=== PATIENT | female | born 1960 | race Caucasian/White ===

== ENCOUNTER 2016-11-29 15:39 | Emergency (ER) | payer BC ==
[~2016-11-29 15:39] MED LIST: Cetirizine* 10 MG TAB PO SCH
[2016-11-29] MEDS ORDERED: NS 0.9% 1000 ML* 1,000 ML IV ONE (16:10)
[2016-11-29] MEDS ORDERED: guaiFENesin LIQ* 100 MG/5 ML UDC PO ONE (16:11)
[2016-11-29] MEDS ORDERED: Ketorolac INJ* 30 MG/ML 1 ML VIAL IV PUSH ONE (16:12)
[2016-11-29] MEDS ORDERED: Saline NASAL SPRAY 0.65%* BTL BOTH NARES ONE (16:21)
--- NOTE | 2016-11-29 16:35 | RAD ---
INDICATION: Cough and congestion COMPARISON: Chest x-ray June 18, 2016 TECHNIQUE: An AP portable view obtained at 1615 hours is submitted. FINDINGS: Bones/Soft Tissues: There are no acute bony findings. Cardiomediastinal: The cardiomediastinal silhouette is normal. Lungs: There are no infiltrates. Pleura: There are no pleural effusions. Other: None IMPRESSION: NO ACTIVE DISEASE.
[2016-11-29 16:49] LABS: Hematocrit 41 % (35-47); Mean Corpuscular HGB Conc 34 g/dl (31-36); Mean Corpuscular Hemoglobin 30 pg (27-31); Mean Corpuscular Volume 87 fL (80-97); Mean Platelet Volume 9 um3 (7.4-10.4); Red Blood Count 4.72 10^6/ul (4.0-5.4); Red Cell Distribution Width 13 % (10.5-15); White Blood Count 7.3 10^3/ul (3.5-10.8)
[2016-11-29] MEDS ORDERED: Cetirizine* 10 MG TAB PO SCH (17:00)
[2016-11-29] MEDS ORDERED: Montelukast Sodium TAB* 10 MG PO ONE (17:16)
[2016-11-29 17:19] LABS: Albumin 4.1 g/dL (3.2-5.2); BUN/Creatinine Ratio 9.3 (8-20); C Reactive Protein 28.02 mg/L (< 5.00); Calcium 9.4 mg/dL (8.6-10.3); EGFR African American 102.1 (>60); EGFR Non-African American 79.4 (>60); Globulin 3.2 g/dL (2-4); Potassium 4.1 mmol/L (3.5-5.0); Total Bilirubin 0.4 mg/dL (0.2-1.0); Total Protein 7.3 g/dL (6.4-8.9)
[2016-11-29 17:52] LABS: Urine Bacteria Absent (Absent); Urine Bilirubin Negative (Negative); Urine Glucose Negative (Negative); Urine Nitrite Negative (Negative)
[2016-11-29 18:36] VITALS: BP 118/78
--- NOTE | 2016-11-29 20:00 | ED ---
Respiratory - HPI Summary HPI Summary: Patient arrives to ED with CC of sinus pressure, sinus pain, cough, congestion, nasal congestion, PERLA and body aches x 5 days. Productive cough with white to yellow sputum. Patient is a smoker. She states she has chronic sinus infection and this feels similar. 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 Patient requesting antibiotic for her sinus pressure and states nothing at home helps. She has tried afrin nasal spray, mucinex and tylenol with no relief. She feels she is getting worse. - History of Current Complaint Chief Complaint: Alice Stated Complaint: CHEST PAIN/HEAD PAIN/DIARHHEA Time Seen by Provider: 11/29/16 15:45 Hx Obtained From: Patient Onset/Duration: Gradual Onset Timing: Constant Initial Severity: Moderate Current Severity: Moderate Pain Intensity: 3 Character: Wheezing, Cough (Productive), Dyspnea at Rest, Dyspnea on Exertion, Orthopnea Sputum Amount: Small Sputum Color: White Aggravating Factor(s): URI, Passive Smoke Exposure Alleviating Factor(s): Antibiotics Associated Signs and Symptoms: SOB, Chest Pain - with cough, URI, Sinus Infection, Chest Pain with Cough, Nasal Congestion, Sinus Discomfort Related History: Similar Episode/Dx as - previous bronchitis and sinus infections - Risk Factors Status Asthmaticus Risk Factors: Smoking Pulmonary Embolism Risk Factors: Smoking Cardiac Risk Factors: Smoking Pseudomonas Risk Factors: Chronic Lung Disease Tuberculosis Risk Factors: Smoking - Allergy/Home Medications Allergies/Adverse Reactions: Allergies Allergy/AdvReac Type Severity Reaction Status Date / Time Sulfamethoxazole Allergy Severe Rash Verified 11/29/16 15:42 w/Trimethoprim [From Bactrim] PMH/Surg Hx/FS Hx/Imm Hx Previously Healthy: Yes - COPD, smoker Endocrine/Hematology History: Denies: Hx Diabetes, Hx Thyroid Disease Cardiovascular History: Reports: Other Cardiovascular Problems/Disorders - Hx of mild PERLA Denies: Hx Congestive Heart Failure, Hx Hypertension Respiratory History: Denies: Hx Asthma, Hx Chronic Obstructive Pulmonary Disease (COPD) GI History: Denies: Hx Ulcer History: Denies: Hx Renal Disease - Surgical History Surgery Procedure, Year, and Place: C-SECTIONS X3, NECK SURGERY, SHOULDER SURGERY, CHOLECYSTECTOMY Infectious Disease History: No Infectious Disease History: Denies: Hx Hepatitis, Hx Human Immunodeficiency Virus (HIV), Traveled Outside the [place] in Last 30 Days - Family History Known Family History: Positive: Cardiac Disease, Other - Cancer - Social History Occupation: Employed Full-time Lives: With Family Alcohol Use: None Hx Substance Use: No Substance Use Type: Reports: None Hx Tobacco Use: Yes Smoking Status (MU): Light Every Day Tobacco Smoker Type: Cigarettes Amount Used/How Often: 1 ppd Review of Systems Positive: Fever, Chills, Fatigue Eyes: Negative Positive: Sore Throat, Nasal Discharge, Other - sinus pressure and pain Positive: Chest Pain Positive: Shortness Of Breath, Cough Positive: Nausea Positive: see HPI Positive: Myalgia Skin: Negative Positive: Headache, Weakness Psychological: Normal All Other Systems Reviewed And Are Negative: Yes Physical Exam Triage Information Reviewed: Yes Vital Signs On Initial Exam: Initial Vitals Temp Pulse Resp BP Pulse Ox 99.7 F 77 20 129/66 100 11/29/16 15:42 11/29/16 15:42 11/29/16 15:42 11/29/16 15:42 11/29/16 15:42 Vital Signs Reviewed: Yes Appearance: Positive: No Pain Distress, Ill-Appearing Skin: Positive: Warm, Skin Color Reflects Adequate Perfusion Head/Face: Positive: Normal Head/Face Inspection, Temporal Artery Tenderness Eyes: Positive: Normal, EOMI, NARINDER, Conjunctiva Clear ENT: Positive: Pharynx normal, Nasal congestion, Nasal drainage, TMs normal, Other - sinus pressure over maxillary sinus and frontal sinus on percussion Neck: Positive: Supple, Nontender, No Lymphadenopathy Respiratory/Lung Sounds: Positive: Wheezes Cardiovascular: Positive: Normal, RRR Musculoskeletal: Positive: Normal, Strength/ROM Intact Neurological: Positive: Normal, Sensory/Motor Intact, Alert, Oriented to Person Place, Time, Speech Normal Psychiatric: Positive: Normal AVPU Assessment: Alert - Magda Coma Scale Best Eye Response: 4 - Spontaneous Best Motor Response: 6 - Obeys Commands Best Verbal Response: 5 - Oriented Diagnostics - Vital Signs Vital Signs Temp Pulse Resp BP Pulse Ox 11/29/16 18:35 98.8 F 74 20 118/78 11/29/16 17:32 18 11/29/16 15:42 99.7 F 77 20 129/66 100 - Laboratory Lab Results: Lab Results 11/29/16 11/29/16 11/29/16 Range/Units 16:25 16:35 16:35 WBC 7.3 (3.5-10.8) 10^3/ul RBC 4.72 (4.0-5.4) 10^6/ul Hgb 14.0 (12.0-16.0) g/dl Hct 41 (35-47) % MCV 87 (80-97) fL MCH 30 (27-31) pg MCHC 34 (31-36) g/dl RDW 13 (10.5-15) % Plt Count 141 L (150-450) 10^3/ul MPV 9 (7.4-10.4) um3 Neut % (Auto) 65.3 (38-83) % Lymph % (Auto) 22.0 L (25-47) % [place] % (Auto) 9.1 H (1-9) % Eos % (Auto) 2.9 (0-6) % Baso % (Auto) 0.7 (0-2) % Absolute Neuts (auto) 4.8 (1.5-7.7) 10^3/ul Absolute Lymphs (auto) 1.6 (1.0-4.8) 10^3/ul Absolute Monos (auto) 0.7 (0-0.8) 10^3/ul Absolute Eos (auto) 0.2 (0-0.6) 10^3/ul Absolute Basos (auto) 0.1 (0-0.2) 10^3/ul Absolute Nucleated RBC 0 10^3/ul Nucleated RBC % 0 Sodium 137 (133-145) mmol/L Potassium 4.1 (3.5-5.0) mmol/L Chloride 106 (101-111) mmol/L Carbon Dioxide 25 (22-32) mmol/L Anion Gap 6 (2-11) mmol/L BUN 7 (6-24) mg/dL Creatinine 0.75 (0.51-0.95) mg/dL Est GFR ( Amer) 102.1 (>60) Est GFR (Non-Af Amer) 79.4 (>60) BUN/Creatinine Ratio 9.3 (8-20) Glucose 95 (70-100) mg/dL Calcium 9.4 (8.6-10.3) mg/dL Total Bilirubin 0.40 (0.2-1.0) mg/dL AST 22 (13-39) U/L ALT 27 (7-52) U/L Alkaline Phosphatase 131 H (34-104) U/L C-Reactive Protein 28.02 H (< 5.00) mg/L Total Protein 7.3 (6.4-8.9) g/dL Albumin 4.1 (3.2-5.2) g/dL Globulin 3.2 (2-4) g/dL Albumin/Globulin Ratio 1.3 (1-3) Urine Color Urine Appearance Urine pH (5-9) Ur Specific [place] (1.010-1.030) Urine Protein (Negative) Urine Ketones (Negative) Urine Blood (Negative) Urine Nitrate (Negative) Urine Bilirubin (Negative) Urine Urobilinogen (Negative) Ur Leukocyte Esterase (Negative) Urine WBC (Auto) (Absent) Urine RBC (Auto) (Absent) Ur Squamous Epith Cells (Absent) Urine Bacteria (Absent) Urine Glucose (Negative) Influenza A (Rapid) Negative (Negative) Influenza B (Rapid) Negative (Negative) 11/29/16 Range/Units 17:25 WBC (3.5-10.8) 10^3/ul RBC (4.0-5.4) 10^6/ul Hgb (12.0-16.0) g/dl Hct (35-47) % MCV (80-97) fL MCH (27-31) pg MCHC (31-36) g/dl RDW (10.5-15) % Plt Count (150-450) 10^3/ul MPV (7.4-10.4) um3 Neut % (Auto) (38-83) % Lymph % (Auto) (25-47) % [place] % (Auto) (1-9) % Eos % (Auto) (0-6) % Baso % (Auto) (0-2) % Absolute Neuts (auto) (1.5-7.7) 10^3/ul Absolute Lymphs (auto) (1.0-4.8) 10^3/ul Absolute Monos (auto) (0-0.8) 10^3/ul Absolute Eos (auto) (0-0.6) 10^3/ul Absolute Basos (auto) (0-0.2) 10^3/ul Absolute Nucleated RBC 10^3/ul Nucleated RBC % Sodium (133-145) mmol/L Potassium (3.5-5.0) mmol/L Chloride (101-111) mmol/L Carbon Dioxide (22-32) mmol/L Anion Gap (2-11) mmol/L BUN (6-24) mg/dL Creatinine (0.51-0.95) mg/dL Est GFR ( Amer) (>60) Est GFR (Non-Af Amer) (>60) BUN/Creatinine Ratio (8-20) Glucose (70-100) mg/dL Calcium (8.6-10.3) mg/dL Total Bilirubin (0.2-1.0) mg/dL AST (13-39) U/L ALT (7-52) U/L Alkaline Phosphatase (34-104) U/L C-Reactive Protein (< 5.00) mg/L Total Protein (6.4-8.9) g/dL Albumin (3.2-5.2) g/dL Globulin (2-4) g/dL Albumin/Globulin Ratio (1-3) Urine Color Yellow Urine Appearance Clear Urine pH 6.0 (5-9) Ur Specific [place] 1.014 (1.010-1.030) Urine Protein Negative (Negative) Urine Ketones Negative (Negative) Urine Blood 1+ H (Negative) Urine Nitrate Negative (Negative) Urine Bilirubin Negative (Negative) Urine Urobilinogen Negative (Negative) Ur Leukocyte Esterase Negative (Negative) Urine WBC (Auto) Absent (Absent) Urine RBC (Auto) 1+(3-5/hpf) H (Absent) Ur Squamous Epith Cells Present H (Absent) Urine Bacteria Absent (Absent) Urine Glucose Negative (Negative) Influenza A (Rapid) (Negative) Influenza B (Rapid) (Negative) Result Diagrams: 11/29/16 16:35 11/29/16 16:35 Lab Statement: Any lab studies that have been ordered have been reviewed, and results considered in the medical decision making process. Disposition - Course Course Of Treatment: Patient given 1L fluids,labs drawn, flu swab given. Mucinex, nasal spray, zyrtec, zofran given. Patient feeling worse after nasal spray and states she is more congested. Flu negative. Sputum culture sent. Chest xray for acute pathology. COPD patient. DC home with Augmentin 875mg twice daily Will await sputum culture if needed to change antibiotics. - Differential Dx - Cardiopulmonary Differential Diagnoses - Cardiopulmonary: Bronchitis, Sinusitis, Other - PNA - Diagnoses Provider Diagnoses: Sinusitis Discharge - Discharge Plan Condition: Stable Disposition: HOME Prescriptions: Amoxicillin/Clavulanate TAB* [Augmentin TAB 875*] 875 mg PO BID #14 tab MDD 2 Patient Education Materials: Sinusitis (ED) Forms: *Work Release Referrals: Ronald Beckett [Primary Care Provider] - Additional Instructions: Take a probiotic on opposite schedule of your antibiotic. An antibiotic may give you diarrhea, upset stomach and secondary infections. Follow up with your PCP if symptoms worsen. Hot tea, lemon and honey for any throat discomfort. Tylenol as needed for fevers and body aches. Nasal spray twice daily. Mucinex over the counter as needed for congestion.
== END 2016-11-29 18:35 | disposition home or self-care (01) ==
LOC: ED 15:39
DX: J32.9 Chronic sinusitis, unspecified (principal); J06.9 Acute upper respiratory infection, unspecified; R07.9 Chest pain, unspecified; R09.81 Nasal congestion; R06.02 Shortness of breath; R53.83 Other fatigue; F17.210 Nicotine dependence, cigarettes, uncomplicated; R11.0 Nausea
CPT/HCPCS: 36415; 71010; 80053; 81003; 81015; 85025; 86140; 87070; 87205; 87502; 96374; 99282; A9270-GY; J1885

== ENCOUNTER 2017-01-04 22:27 | Emergency (ER) | payer SELFPAY ==
--- NOTE | 2017-01-04 23:00 | RAD ---
INDICATION: Right ankle injury. TECHNIQUE: 3 views of the right ankle were obtained. FINDINGS: There is soft tissue swelling present. The bones are in normal alignment. No fracture is seen. Joint spaces appear maintained. IMPRESSION: NO EVIDENCE FOR FRACTURE.
[2017-01-04] MEDS ORDERED: Ibuprofen TAB* 600 MG PO ONE (23:46)
--- NOTE | 2017-01-04 23:46 | ED ---
Lower Extremity - HPI Summary HPI Summary: 56F presents with injury to right foot today. She dropped a mop on the medial aspect of her right ankle. She denies any numbness or tingling. There is obvious swelling to the medial aspect of her ankle. She denies any previous injury to the ankle - History of Current Complaint Chief Complaint: EDExtremityLower Stated Complaint: RIGHT INSIDE ANKLE PAIN Time Seen by Provider: 01/04/17 23:39 Pain Intensity: 8 - Allergies/Home Medications Allergies/Adverse Reactions: Allergies Allergy/AdvReac Type Severity Reaction Status Date / Time Sulfamethoxazole Allergy Severe Rash Verified 01/04/17 22:40 w/Trimethoprim [From Bactrim] PMH/Surg Hx/FS Hx/Imm Hx Endocrine/Hematology History: Denies: Hx Diabetes, Hx Thyroid Disease Cardiovascular History: Reports: Other Cardiovascular Problems/Disorders - Hx of mild PERLA Denies: Hx Congestive Heart Failure, Hx Hypertension Respiratory History: Denies: Hx Asthma, Hx Chronic Obstructive Pulmonary Disease (COPD) GI History: Denies: Hx Ulcer History: Denies: Hx Renal Disease - Surgical History Surgery Procedure, Year, and Place: C-SECTIONS X3, NECK SURGERY, SHOULDER SURGERY, CHOLECYSTECTOMY Infectious Disease History: No Infectious Disease History: Denies: Hx Hepatitis, Hx Human Immunodeficiency Virus (HIV), Traveled Outside the [place] in Last 30 Days - Family History Known Family History: Positive: Cardiac Disease, Other - Cancer - Social History Alcohol Use: None Hx Substance Use: No Substance Use Type: Reports: None Hx Tobacco Use: Yes Smoking Status (MU): Light Every Day Tobacco Smoker Type: Cigarettes Amount Used/How Often: 1 ppd Review of Systems Negative: Fever Negative: Chest Pain Negative: Shortness Of Breath Positive: Myalgia - right ankle pain All Other Systems Reviewed And Are Negative: Yes Physical Exam Triage Information Reviewed: Yes Vital Signs On Initial Exam: Initial Vitals Temp Pulse Resp BP Pulse Ox 97.8 F 78 15 116/61 99 01/04/17 22:35 01/04/17 22:35 01/04/17 22:35 01/04/17 22:35 01/04/17 22:35 Vital Signs Reviewed: Yes Appearance: Positive: Well-Appearing Skin: Positive: Warm, Dry Head/Face: Positive: Normal Head/Face Inspection Eyes: Positive: Normal, Conjunctiva Clear Respiratory/Lung Sounds: Positive: Clear to Auscultation, Breath Sounds Present Cardiovascular: Positive: Normal, RRR Musculoskeletal: Positive: Limited @ - right ankle due to pain, Other - good pulses, capillary refill < 2 secs, ecchymosis noted to right medial malleoulus that is tender to touch, sensation grossly intact Diagnostics - Vital Signs Vital Signs Temp Pulse Resp BP Pulse Ox 01/04/17 22:35 97.8 F 78 15 116/61 99 - Laboratory Lab Statement: Any lab studies that have been ordered have been reviewed, and results considered in the medical decision making process. - Radiology ankle Xray Interpretation: No Acute Changes - IMPRESSION: NO EVIDENCE FOR FRACTURE. Radiology Interpretation Completed By: Radiologist Lower Extremity Course/Dx - Course Course Of Treatment: 56M presents with right ankle pain s/p dropping mop on ankle. on exam has ecchymosis noted to right medical malleolous, neurovascular intact. xray normal. told will treat as contusion, patient requested post op shoe with gave. told follow [facility]ICE. patient understands and agrees with plan - Diagnoses Differential Diagnosis/HQI/PQRI: Positive: Contusion, Fracture (Closed), Sprain , Strain Provider Diagnoses: Right ankle injury Discharge - Discharge Plan Condition: Good Disposition: HOME Patient Education Materials: Foot Contusion (ED) Forms: *Work Release Referrals: Ronald Beckett [Primary Care Provider] - Additional Instructions: Take Tylenol or ibuprofen every 6 hours as needed for pain Apply ice, rest, elevate Follow up with primary care physician within 5 days if no improvement Return to ED if develop or any new or worsening symptoms
[2017-01-05 00:44] VITALS: BP 116/66
== END 2017-01-05 00:42 | disposition home or self-care (01) ==
LOC: ED 22:27
DX: S99.911A Unspecified injury of right ankle, initial encounter (principal); W20.8XXA Other cause of strike by thrown, projected or falling object, initial encounter; Y93.9 Activity, unspecified; Y92.89 Other specified places as the place of occurrence of the external cause; Y99.8 Other external cause status; F17.210 Nicotine dependence, cigarettes, uncomplicated
CPT/HCPCS: 99282; A9270-GY

== ENCOUNTER 2017-06-03 17:48 | Observation (INO) | payer BC ==
[2017-06-03] MEDS ORDERED: Famotidine IV* 10 MG/ML 2 ML (20 mg) IV SLOW PU ONE (18:04)
[2017-06-03] MEDS ORDERED: Al Hydrox/Mg Hydrox/Simet LIQ* 30 ML UDC PO ONE (18:04)
--- NOTE | 2017-06-03 18:49 | RAD ---
Indication: Epigastric pain. Single frontal view of the chest performed at 1830 hours was reviewed. Comparison is made with previous exam dated November 29, 2016. No mediastinal shift is noted. Heart is of normal size and configuration. Lung velarde appear clear. IMPRESSION: NO ACTIVE CARDIOPULMONARY DISEASE IS NOTED.
[2017-06-03] MEDS ORDERED: Ondansetron INJ* 2 MG/ML VIAL IV ONE ×2 (18:52→19:53)
[2017-06-03] MEDS ORDERED: Ondansetron INJ* 2 MG/ML VIAL ONE (18:54)
[2017-06-03] MEDS: NS 0.9% 1000 ML* 1,000 ML IV SCH (18:55)
[2017-06-03 19:06] LABS: Hematocrit 41 % (35-47); Hemoglobin 13.8 g/dl (12.0-16.0); Mean Corpuscular HGB Conc 34 g/dl (31-36); Mean Corpuscular Hemoglobin 30 pg (27-31); Mean Corpuscular Volume 88 fL (80-97); Mean Platelet Volume 9 um3 (7.4-10.4); Red Blood Count 4.62 10^6/ul (4.0-5.4); Red Cell Distribution Width 14 % (10.5-15); White Blood Count 8.5 10^3/ul (3.5-10.8)
[2017-06-03 19:30] LABS: Albumin 4.3 g/dL (3.2-5.2); BUN/Creatinine Ratio 15.5 (8-20); C Reactive Protein 18.43 mg/L (< 5.00); Calcium 9.7 mg/dL (8.6-10.3); EGFR African American 108.7 (>60); EGFR Non-African American 84.6 (>60); Magnesium 2.1 mg/dL (1.9-2.7); Potassium 3.9 mmol/L (3.5-5.0); Total Bilirubin 0.4 mg/dL (0.2-1.0); Total Protein 7.3 g/dL (6.4-8.9)
[2017-06-03 19:43] LABS: TSH (Thyroid Stimulating Horm) 4.34 mcIU/mL (0.34-5.60)
[2017-06-03] MEDS ORDERED: Morphine INJ* 4 MG/ML 1 ML SYRINGE IV ONE (19:53)
[2017-06-03] MEDS ORDERED: Aspirin TAB* 325 MG PO ONE (19:54)
[2017-06-03] MEDS ORDERED: Iohexol 300* (CONTRAST) 10 ML SDV IV ONE (20:13)
[2017-06-03] MEDS ORDERED: Albuterol/Ipratropium NEB.SOL* Albuterol 2.5 MG/Ipratropium 0.5 MG 3 ML INH ONE (20:23)
[2017-06-03] MEDS ORDERED: Iohexol 350* (CONTRAST) 500 ML MDV IV ONE (20:30)
[2017-06-03] MEDS ORDERED: Morphine INJ* 2 MG/ML 1 ML SYRINGE ONE (21:24)
[2017-06-03] MEDS ORDERED: Morphine INJ* 2 MG/ML 1 ML SYRINGE IV PRN (22:56)
--- NOTE | 2017-06-03 23:34 | ED ---
Belem Gates Rebecca, scribed for DaronMagno on 06/03/17 at 1957 . HPI Chest Pain - HPI Summary HPI Summary: Pt is a 56 y/o F BIBA who presents to ED c/o CP. Pain began last night while at work at approximately 0200, then resolved and returned at approximately 1130, waking her up from sleep. Pain is in the lower sternal region with radiation to the epigastric region and is currently severe, ranked 8/10. Additionally c/o N/V , dizziness and SOB. Denies edema. No PMHx HTN, DM. FHx CAD. SHx current smoker. - History of Current Complaint Chief Complaint: EDChestPainROMI Time Seen by Provider: 06/03/17 19:28 Hx Obtained From: Patient Onset/Duration: Started Hours Ago, Still Present Time of Onset: 02:00 Timing: Intermittent Current Severity: Severe Pain Intensity: 8 Pain Scale Used: 0-10 Numeric Chest Pain Location: Lower Sternal Chest Pain Radiates: Yes Chest Pain Radiates To:: Epigastric Associated Signs and Symptoms: Positive: Dizziness, Shortness of Breath, Nausea , Vomiting - Allergy/Home Medications Allergies/Adverse Reactions: Allergies Allergy/AdvReac Type Severity Reaction Status Date / Time Sulfamethoxazole Allergy Severe Rash Verified 06/03/17 20:07 w/Trimethoprim [From Bactrim] Home Medications: Home Medications Unobtainable [Unobtainable] 06/03/17 [History Confirmed 06/03/17] PMH/Surg Hx/FS Hx/Imm Hx Endocrine/Hematology History: Denies: Hx Diabetes, Hx Thyroid Disease Cardiovascular History: Reports: Other Cardiovascular Problems/Disorders - Hx of mild PERLA Denies: Hx Congestive Heart Failure, Hx Hypertension Respiratory History: Denies: Hx Asthma, Hx Chronic Obstructive Pulmonary Disease (COPD) GI History: Denies: Hx Ulcer History: Denies: Hx Renal Disease - Surgical History Surgery Procedure, Year, and Place: C-SECTIONS X3, NECK SURGERY, SHOULDER SURGERY, CHOLECYSTECTOMY Infectious Disease History: Denies: Hx Hepatitis, Hx Human Immunodeficiency Virus (HIV), Traveled Outside the [place] in Last 30 Days - Family History Known Family History: Positive: Cardiac Disease, Other - Cancer - Social History Alcohol Use: None Hx Substance Use: No Substance Use Type: Reports: None Hx Tobacco Use: Yes Smoking Status (MU): Light Every Day Tobacco Smoker Type: Cigarettes Amount Used/How Often: 1 ppd Review of Systems Positive: Chest Pain Positive: Shortness Of Breath Positive: Vomiting, Nausea Neurological: Other - Dizziness All Other Systems Reviewed And Are Negative: Yes Physical Exam - Summary Physical Exam Summary: Appearance: Well appearing, no pain distress Skin: warm, dry, reflects adequate perfusion Head/face: normal Eyes: EOMI, NARINDER ENT: normal Neck: supple, nontender Respiratory: bilateral wheeze, breath sounds present Cardiovascular: RRR, pulses symmetrical Abdomen: epigastric tenderness, LUQ tenderness, soft Bowel: present Musculoskeletal: normal, strength/ROM intact Neuro: normal, sensory motor intact, A&Ox3 Triage Information Reviewed: Yes Vital Signs On Initial Exam: Initial Vitals Temp Pulse Resp BP Pulse Ox 98.6 F 66 12 132/74 97 06/03/17 17:59 06/03/17 17:59 06/03/17 17:59 06/03/17 17:59 06/03/17 17:59 Vital Signs Reviewed: Yes - Magda Coma Scale Coma Scale Total: 15 Diagnostics - Vital Signs Vital Signs Temp Pulse Resp BP Pulse Ox 06/03/17 17:59 98.6 F 66 12 132/74 97 - Laboratory Lab Results: Lab Results 06/03/17 06/03/17 06/03/17 Range/Units 18:45 18:45 18:45 WBC (3.5-10.8) 10^3/ul RBC (4.0-5.4) 10^6/ul Hgb (12.0-16.0) g/dl Hct (35-47) % MCV (80-97) fL MCH (27-31) pg MCHC (31-36) g/dl RDW (10.5-15) % Plt Count (150-450) 10^3/ul MPV (7.4-10.4) um3 Neut % (Auto) (38-83) % Lymph % (Auto) (25-47) % Rogers % (Auto) (1-9) % Eos % (Auto) (0-6) % Baso % (Auto) (0-2) % Absolute Neuts (auto) (1.5-7.7) 10^3/ul Absolute Lymphs (auto) (1.0-4.8) 10^3/ul Absolute Monos (auto) (0-0.8) 10^3/ul Absolute Eos (auto) (0-0.6) 10^3/ul Absolute Basos (auto) (0-0.2) 10^3/ul Absolute Nucleated RBC 10^3/ul Nucleated RBC % INR (Anticoag Therapy) 0.87 L (0.89-1.11) APTT 32.0 (26.0-36.3) seconds D-Dimer, Quantitative 425 H (Less Than 230) ng/mL Sodium 138 (133-145) mmol/L Potassium 3.9 (3.5-5.0) mmol/L Chloride 106 (101-111) mmol/L Carbon Dioxide 23 (22-32) mmol/L Anion Gap 9 (2-11) mmol/L BUN 11 (6-24) mg/dL Creatinine 0.71 (0.51-0.95) mg/dL Est GFR ( Amer) 108.7 (>60) Est GFR (Non-Af Amer) 84.6 (>60) BUN/Creatinine Ratio 15.5 (8-20) Glucose 94 (70-100) mg/dL Lactic Acid (0.5-2.0) mmol/L Calcium 9.7 (8.6-10.3) mg/dL Magnesium 2.1 (1.9-2.7) mg/dL Total Bilirubin 0.40 (0.2-1.0) mg/dL AST 19 (13-39) U/L ALT 22 (7-52) U/L Alkaline Phosphatase 111 H (34-104) U/L Total Creatine Kinase 59 (10-223) U/L CK-MB (CK-2) 1.1 (0.6-6.3) ng/mL Troponin I 0.00 (<0.04) ng/mL C-Reactive Protein 18.43 H (< 5.00) mg/L B-Natriuretic Peptide 33 ( - 100) pg/mL Total Protein 7.3 (6.4-8.9) g/dL Albumin 4.3 (3.2-5.2) g/dL Globulin 3.0 (2-4) g/dL Albumin/Globulin Ratio 1.4 (1-3) Lipase 35 (11.0-82.0) U/L TSH Pending 06/03/17 06/03/17 Range/Units 18:45 18:45 WBC 8.5 (3.5-10.8) 10^3/ul RBC 4.62 (4.0-5.4) 10^6/ul Hgb 13.8 (12.0-16.0) g/dl Hct 41 (35-47) % MCV 88 (80-97) fL MCH 30 (27-31) pg MCHC 34 (31-36) g/dl RDW 14 (10.5-15) % Plt Count 174 (150-450) 10^3/ul MPV 9 (7.4-10.4) um3 Neut % (Auto) 65.7 (38-83) % Lymph % (Auto) 26.0 (25-47) % Rogers % (Auto) 6.2 (1-9) % Eos % (Auto) 1.4 (0-6) % Baso % (Auto) 0.7 (0-2) % Absolute Neuts (auto) 5.6 (1.5-7.7) 10^3/ul Absolute Lymphs (auto) 2.2 (1.0-4.8) 10^3/ul Absolute Monos (auto) 0.5 (0-0.8) 10^3/ul Absolute Eos (auto) 0.1 (0-0.6) 10^3/ul Absolute Basos (auto) 0.1 (0-0.2) 10^3/ul Absolute Nucleated RBC 0 10^3/ul Nucleated RBC % 0 INR (Anticoag Therapy) (0.89-1.11) APTT (26.0-36.3) seconds D-Dimer, Quantitative (Less Than 230) ng/mL Sodium (133-145) mmol/L Potassium (3.5-5.0) mmol/L Chloride (101-111) mmol/L Carbon Dioxide (22-32) mmol/L Anion Gap (2-11) mmol/L BUN (6-24) mg/dL Creatinine (0.51-0.95) mg/dL Est GFR ( Amer) (>60) Est GFR (Non-Af Amer) (>60) BUN/Creatinine Ratio (8-20) Glucose (70-100) mg/dL Lactic Acid 0.8 (0.5-2.0) mmol/L Calcium (8.6-10.3) mg/dL Magnesium (1.9-2.7) mg/dL Total Bilirubin (0.2-1.0) mg/dL AST (13-39) U/L ALT (7-52) U/L Alkaline Phosphatase (34-104) U/L Total Creatine Kinase (10-223) U/L CK-MB (CK-2) (0.6-6.3) ng/mL Troponin I (<0.04) ng/mL C-Reactive Protein (< 5.00) mg/L B-Natriuretic Peptide ( - 100) pg/mL Total Protein (6.4-8.9) g/dL Albumin (3.2-5.2) g/dL Globulin (2-4) g/dL Albumin/Globulin Ratio (1-3) Lipase (11.0-82.0) U/L TSH Result Diagrams: 06/03/17 18:45 06/03/17 18:45 Lab Statement: Any lab studies that have been ordered have been reviewed, and results considered in the medical decision making process. - Radiology CXR Xray Interpretation: No Acute Changes - NO ACTIVE CARDIOPULMONARY DISEASE IS NOTED. ED physician reviewed this radiology report and agrees. Radiology Interpretation Completed By: Radiologist - CT CTA Chest/CT Abd/Pel CT Interpretation Completed By: Radiologist - Chest: Thoracic aorta is mildly atherosclerotic and mildly ectatic in a diffuse fashion. No thoracic or abdominal aortic dissection. No evidence of pulmonary embolism. The heart size is borderline. There is trace pleural effusions. No pneumothorax. Abdomen/Pelvis : There is no free air in the abdomen. There is mild fatty change in the liver. There is prior cholecystectomy. There is no hydronephrosis. The abdominal aorta is mildly calcified. Ther eis no abdominal aortic aneurysm. The appendix is not identified.There is no pericecal or right lower quadrant inflammatory process. Urinary bladder unremarkable. The ED physician reviewed this radiology report and agrees. - EKG 1807 Cardiac Rate: NL - 60 bpm EKG Rhythm: Sinus Rhythm EKG Interpretation: RBBB Chest Pain Course/Dx - Course Assessment/Plan: Pt is a 56 y/o F BIBA who presents to ED c/o CP. Pain began last night while at work at approximately 0200, then resolved and returned at approximately 1130, waking her up from sleep. Pain is in the lower sternal region with radiation to the epigastric region and is currently severe, ranked 8 /10. Additionally c/o N/V, dizziness and SOB. Denies edema. No PMHx HTN, DM. FHx CAD. SHx current smoker. CXR reveals no acute findings. EKG is sinus rhythm with RBBB. CTA Chest/CT abd/Pel reveals "Chest: Thoracic aorta is mildly atherosclerotic and mildly ectatic in a diffuse fashion. No thoracic or abdominal aortic dissection. No evidence of pulmonary embolism. The heart size is borderline. There is trace pleural effusions. No pneumothorax. Abdomen/Pelvis : There is no free air in the abdomen. There is mild fatty change in the liver. There is prior cholecystectomy. There is no hydronephrosis. The abdominal aorta is mildly calcified. Ther eis no abdominal aortic aneurysm. The appendix is not identified.There is no pericecal or right lower quadrant inflammatory process. Urinary bladder unremarkable." Blood work done. D-Dimer of 425, troponin of 0.00. In the ED course, pt received Maalox, pepcid, morphine, zofran, ASA, duoneb and fluids. Discussed care of pt with Dr. Arceo who accepts pt for admission. Pt will be admitted with Dx of CP r/o [place] and abdominal pain. She understands and agrees. Elevated BP noted and advised to f/u with PCP. - Diagnoses Provider Diagnoses: Chest pain, rule out acute myocardial infarction, Abdominal pain - Provider Notifications Discussed Care Of Patient With: Doug Arceo Time Discussed With Above Provider: 22:12 Instructed by Provider To: Other - Accepts pt for admission Discharge - Discharge Plan Condition: Stable Disposition: ADMITTED TO [facility] documentation as recorded by the Belem pringle Rebecca accurately reflects the service I personally performed and the decisions made by , Magno Neri.
[2017-06-04] MEDS: NS 0.9% 1000 ML* 1,000 ML IV SCH (00:06)
--- NOTE | 2017-06-04 01:34 | HP ---
CC: JOSE CRUZ Brown * HISTORY AND PHYSICAL: DATE OF ADMISSION: 06/03/17 PRIMARY CARE PHYSICIAN: JOSE CRUZ Brown CHIEF COMPLAINT: Chest pain. HISTORY OF PRESENT ILLNESS: The patient is a 56-year-old woman, who said last night at work she started feeling dizzy. She felt a little bit of chest pain on her left side. It seems to let up so she did not think much of it. She went home and went to sleep and then it awoken her from sleep. At that point, it was about 9/10 in severity and it radiated to her left arm. She had some associated shortness of breath and she felt a little clammy, but she had no nausea or vomiting. She took nothing for it. She states that she tried to relax in her chair, but it never went away so she came to the ED for evaluation. In the ED, she received morphine, which did help relieve the pain. PAST MEDICAL HISTORY: Significant for biliary colic, status post cholecystectomy in January 2012, appendectomy, C-sections x3, left shoulder surgery, neck disk surgery and anxiety. MEDICATIONS: Include sertraline 50 mg daily. ALLERGIES: She has an allergy/adverse reaction to BACTRIM. FAMILY HISTORY: Father at 70 with CHF, mother at 55 of pancreatic cancer. SOCIAL HISTORY: Smoked half to a pack a day or more a day now and usually smokes one and a half packs a day and she has been smoking for 30 years. No alcohol or recreational drug use. She works at [employer] She is a . Her daughter, Gabriel Giron, is her healthcare proxy. She has 3 children. REVIEW OF SYSTEMS: A 14-point review of systems was completed with the patient. All pertinent positives and negatives are in the history of present illness, otherwise it is negative. PHYSICAL EXAMINATION GENERAL: She is a very pleasant woman, lying in bed, in no acute distress. VITAL SIGNS: Temperature 98.6 degrees, heart rate is 66 beats a minute, respiratory rate 12 breaths a minute, pulse ox 97% on room air, blood pressure 132/74. HEENT: Normocephalic, atraumatic. Pupils equal, round, and reactive to light. Moist mucous membranes. NECK: Supple. No JVD, bruits, palpable thyroid or lymphadenopathy. CHEST: Clear to auscultation and percussion bilaterally. CARDIOVASCULAR: S1, S2 appreciated. Regular rate and rhythm. No murmurs, gallops or rubs. ABDOMEN: Positive bowel sounds in all 4 quadrants. Soft, nontender, nondistended. No hepatosplenomegaly. EXTREMITIES: No cyanosis, clubbing or edema. +2 peripheral pulses bilaterally. NEURO: Alert and oriented x3. Moves all extremities. SKIN: No rashes or other abnormalities. LABORATORY DATA/DIAGNOSTIC DATA: White count 8.5, hemoglobin 13.8, hematocrit 41, platelets 174. Sodium 138, potassium 3.9, chloride 106, CO2 23, BUN 11, creatinine 0.71, glucose 94, troponin 0.00, INR 0.87, D-dimer is 425. Chest, abdomen, and pelvis CTA reading is pending. Chest x-ray shows no active cardiopulmonary disease. EKG shows normal sinus rhythm, 60 beats per minute, normal axis, no acute ST-T wave changes, incomplete right bundle-branch block. ASSESSMENT AND PLAN: 1. Chest pain, the patient with risk factor of smoking. We will admit the patient, rule out myocardial infarction with serial troponins, check lipid profile in a.m., nuclear stress test in a.m., await CTA scan. Obviously if positive, we will reassess if she has a pulmonary embolism. 2. Tobacco abuse, recommended cessation. The patient declines need for nicotine replacement at this time. 3. FEN, n.p.o. after midnight. 4. DVT prophylaxis, heparin subcu. 5. The patient is full code. TIME SPENT: Over 75 minutes were spent on this H and P, more than 40 minutes of which was spent in direct [id number] contact with the patient in evaluation , physical exam, counseling and coordination of care. [id number]/[facility] #: [id number] LIUDMILA
[2017-06-04 03:43] LABS: HDL Cholesterol 36.9 mg/dL
[2017-06-04 04:27] LABS: Urine Bacteria Absent (Absent); Urine Bilirubin Negative (Negative); Urine Glucose Negative (Negative); Urine Nitrite Negative (Negative)
[2017-06-04] MEDS ORDERED: Acetaminophen TAB* 325 MG PO PRN (05:31)
[2017-06-04] MEDS ORDERED: Heparin VIAL(*) 5000 UNITS/ML VIAL (FIVE THOUSAND) SUBCUT SCH (06:00)
--- NOTE | 2017-06-04 07:38 | RAD ---
INDICATION: Abdominal pain. COMPARISON: Comparison is made with a prior CT of the abdomen and pelvis from June 30, 2012, prior CT angiogram of the chest from July 03, 2013 and chest x-ray exam from June 03, 2017. TECHNIQUE: A CT angiogram of the chest and a CT of the abdomen and pelvis was performed with intravenous contrast following intravenous injection of 72 ml of Omnipaque 350 nonionic contrast. Contiguous axial sections were obtained from the lung apices through the symphysis pubis. Images were reconstructed in the coronal and sagittal planes. FINDINGS: CT ANGIOGRAM OF THE CHEST: There is relatively homogeneous opacification of the pulmonary arteries. No intraluminal filling defect or pulmonary embolism is seen. The heart is within normal limits in size. No pericardial effusion is present. The thoracic aorta is normal in caliber and demonstrates homogeneous contrast opacification without evidence for dissection. No significant enlarged mediastinal or hilar lymph nodes are seen. There is mild dependent bilateral lower lobe subsegmental atelectasis. The lungs are otherwise clear. No pleural effusion or pneumothorax is seen. CT OF THE ABDOMEN AND PELVIS: The liver and spleen are normal in size without significant focal abnormality. The liver is decreased in attenuation consistent with fatty infiltration. The patient is status post cholecystectomy. The pancreas appears to be within normal limits. The kidneys and adrenal glands are normal in size. No hydronephrosis is seen. No significant focal renal abnormality is seen. The abdominal aorta is normal in caliber. There is mild to moderate calcific and soft plaque present. No significant enlarged retroperitoneal lymph nodes are seen. The stomach, small and large bowel appear nondistended. The appendix is not visualized. There is mild descending and sigmoid diverticulosis without evidence for diverticulitis. The uterus is anteverted and normal in size. No free intraperitoneal air or fluid is seen. No significant focal osseous abnormality is seen. IMPRESSION: 1. NO EVIDENCE FOR PULMONARY EMBOLISM OR AORTIC DISSECTION. 2. NO EVIDENCE FOR ACUTE FINDING IN THE ABDOMEN OR CAUSE FOR THE PATIENT'S ABDOMINAL PAIN. 3. HEPATIC STEATOSIS. 4. STATUS POST CHOLECYSTECTOMY.
[2017-06-04 08:55] VITALS: BP 99/40
[2017-06-04] MEDS ORDERED: Sertraline* 50 MG TAB PO SCH (09:00)
--- NOTE | 2017-06-04 11:26 | RAD ---
HISTORY: Chest pain COMPARISONS: None TECHNIQUE: A 1 day stress/rest myocardial perfusion study was performed, with pharmacologic stress. The stress portion was monitored by Dr. Todd. Gated SPECT imaging was performed, with CT-based attenuation correction DOSE: Stress: Technetium 99m tetrofosmin, 25.8 millicuries, injected at 9:20 AM on June 04, 2017 Rest: Technetium 99m tetrofosmin, 10.83 millicuries, injected at 6:30 AM on June 04, 2017 Pharmacologic agent: Lexiscan FINDINGS: CARDIAC MONITORING: No EKG changes of ischemia with stress EF: 74 % TID: 1.31 MOTION: Normal motion, with normal wall thickening. PERFUSION: There is an anterior wall defect that resolves with attenuation correction, and is likely artifactual. There are no definite fixed or reversible perfusion defects. OTHER: None IMPRESSION: NO DEFINITE FIXED OR REVERSIBLE PERFUSION DEFECTS. THERE IS AN ELEVATED TID RATIO WHICH MAY BE ASSOCIATED WITH THREE-VESSEL DISEASE ASSESSMENT: INTERMEDIATE RISK. Based on imaging criteria from ACC/AHA 2002. Guideline Update for the Management of Patient's with Chronic Stable Angina, table 23. Noninvasive Risk Stratification.
[2017-06-04] MEDS ORDERED: Regadenoson* 0.4 MG/5 ML SYRINGE ONE (11:54)
--- NOTE | 2017-06-04 12:09 | DCNOTE ---
Patient seen this morning, states pain is almost gone. Now feels like gas pains/ indigestion, reports belching alleviates pain. On exam, RRR, s1 and s2 present, no m/g/r, abd soft, NTND, BS+, no LE edema Nuclear stress test had some concern for increased TID ratio, discussed with Dr. Del Angel who felt there were no abnormalities Discharge home on PPI, f/u with PCP.
--- NOTE | 2017-06-05 08:40 | DS ---
CC: JOSE CRUZ Brown * DISCHARGE SUMMARY: DATE OF ADMISSION: 06/03/17 DATE OF DISCHARGE: 06/04/17 PCP: JOSE CRUZ Brown PRINCIPAL DISCHARGE DIAGNOSIS: Chest pain, likely GI related. SECONDARY DIAGNOSES: 1. Depression/anxiety. DISCHARGE MEDICATION REGIMEN: 1. Sertraline 50 mg by mouth daily. 2. Omeprazole 20 mg by mouth daily. STUDIES DONE DURING HOSPITALIZATION: 1. Chest x-ray. Impression: No active cardiopulmonary disease is noted. 2. CTA of chest, abdomen, and pelvis. Impression: No evidence for pulmonary embolism or aortic dissection. No evidence for acute findings in the abdomen or cause for the patient's abdominal pain. Hepatic steatosis, status post cholecystectomy. 3. Nuclear cardiac stress test. Impression: No definite fixed or reversible perfusion defects. There is an elevated T.I.D. ratio, which may be associated with three-vessel disease. Assessment: Intermediate risk. HISTORY OF PRESENT ILLNESS AND HOSPITAL SUMMARY: Please see the full history and physical by Dr. Doug Arceo for details. Briefly, Ms. Brewer is a 56-year- old female who presented to the hospital with chest pain that radiated down the arm. This pain resolved in the emergency department, but did not recur throughout the remainder of the hospitalization. She was monitored on telemetry and troponins were trended, which were normal. The patient underwent a stress test; that was negative. On further discussion with the patient, she states that the pain feels like a gas pain, possibly some indigestion. She states she has been belching since she came to the hospital with improvement in her pain. She states she used to be on a PPI, which she stopped a few months ago, but she would like to resume this if possible. Blood pressures were a bit soft in the hospital; however, she was asymptomatic. The patient will be discharged home with a prescription for a PPI, and to follow up with her PCP as an outpatient. TIME SPENT: Total time spent on this discharge - 35 minutes. This is a summary of the hospitalization; please see the full medical record for further details. [id number]/[facility] #: [id number] MTDD
== END 2017-06-04 12:51 | disposition home or self-care (01) ==
LOC: ED 17:48 → MEDTELE 22:56
PROVIDERS: ADMIT Internal Medicine; ATTEND Hospitalist
DX: R07.89 Other chest pain (principal); F41.8 Other specified anxiety disorders; K76.0 Fatty (change of) liver, not elsewhere classified; R10.9 Unspecified abdominal pain; R10.13 Epigastric pain; R11.2 Nausea with vomiting, unspecified; R42 Dizziness and giddiness; R06.02 Shortness of breath; F17.210 Nicotine dependence, cigarettes, uncomplicated
CPT/HCPCS: 36415; 71010; 71275; 74177; 78452; 80053; 80061; 81003; 81015; 82550; 82553; 83605; 83690; 83735; 83880; 84443; 84484; 85025; 85379; 85610; 85730; 86140; 93005; 93017; 94640; 96374; 96375; 99285; A9270-GY; A9502; G0378; J1644; J2270; J2405; J2785; Q9967

== ENCOUNTER 2017-07-15 18:03 | Emergency (ER) | payer BC ==
[2017-07-15 18:18] VITALS: BP 123/58
[2017-07-15] MEDS ORDERED: Albuterol 2.5 MG/3 ML NEB.SOL* (0.083%) INH ONE (18:32)
[2017-07-15] MEDS ORDERED: Ipratropium 0.5MG/2.5ML NEB* 0.5 MG/2.5 ML NEB.SOLN INH ONE (18:32)
--- NOTE | 2017-07-15 18:42 | UC ---
Respiratory Complaint HPI - HPI Summary HPI Summary: 56 yo female with one month hx of cough has had sinus pressure and pain Wheezing no f/c no cp/sob no n/v/d - History of Current Complaint Chief Complaint: UCGeneralIllness Stated Complaint: SINUS CONGESTION, COUGH, AND CHILLS Time Seen by Provider: 07/15/17 18:23 Hx Obtained From: Patient Onset/Duration: Gradual Onset, Lasting Weeks Timing: Constant Severity Initially: Mild Severity Currently: Moderate Pain Intensity: 2 Pain Scale Used: 0-10 Numeric Character: Cough: Productive Aggravating Factors: Exertion, Deep Breaths Alleviating Factors: Nothing Associated Signs And Symptoms: Positive: Wheezing, Nasal Congestion, Sinus Discomfort Related History: Similar Episode/Dx as: - bronchitis - Allergies/Home Medications Allergies/Adverse Reactions: Allergies Allergy/AdvReac Type Severity Reaction Status Date / Time Sulfamethoxazole Allergy Severe Rash Verified 07/15/17 18:18 w/Trimethoprim [From Bactrim] Home Medications: Home Medications GuaiFENesin DM* [Robitussin DM*] 1 dose PO Q4HR PRN 07/15/17 [History Confirmed 07/15/17] Ibuprofen TAB* [Advil TAB*] 4 tab PO DAILY 07/15/17 [History Confirmed 07/15/17] PMH/Surg Hx/FS Hx/Imm Hx Previously Healthy: Yes GI/ History: Gastroesophageal Reflux - Surgical History Surgical History: Yes Surgery Procedure, Year, and Place: C-SECTIONS X3, NECK SURGERY, SHOULDER SURGERY, CHOLECYSTECTOMY - Family History Known Family History: Positive: Cardiac Disease, Other - Cancer - Social History Alcohol Use: None Substance Use Type: None Smoking Status (MU): Heavy Every Day Tobacco Smoker Type: Cigarettes Amount Used/How Often: 10 cigs Have You Smoked in the Last Year: Yes Cessation Counseling: Patient Advised to Stop - Immunization History Most Recent Influenza Vaccination: doesn't get Review of Systems Constitutional: Negative Skin: Negative Eyes: Negative ENT: Nasal Discharge, Sinus Congestion, Sinus Pain/Tenderness Respiratory: Shortness Of Breath, Cough Cardiovascular: Negative Gastrointestinal: Negative Genitourinary: Negative Motor: Negative Neurovascular: Negative Musculoskeletal: Negative Neurological: Negative Psychological: Negative Is Patient Immunocompromised?: No All Other Systems Reviewed And Are Negative: Yes Physical Exam Triage Information Reviewed: Yes Appearance: Well-Appearing, No Pain Distress, Well-Nourished Vital Signs: Initial Vital Signs Temp 98.6 F 07/15/17 18:14 Pulse 82 07/15/17 18:14 Resp 18 07/15/17 18:14 BP 123/58 07/15/17 18:14 Pulse Ox 99 07/15/17 18:14 Vital Signs Reviewed: Yes Eyes: Positive: Conjunctiva Clear ENT: Positive: Hearing grossly normal. Negative: Nasal congestion, Nasal drainage, Trismus, Muffled/hoarse voice Neck: Positive: Supple, Nontender Respiratory: Positive: Accessory muscle use, Wheezing Cardiovascular: Positive: RRR, No Murmur. Negative: Tachycardia, Bradycardia Musculoskeletal: Positive: ROM Intact, No Edema Neurological Exam: Normal Neurological: Positive: Alert Psychological Exam: Normal Skin Exam: Normal UC Diagnostic Evaluation - Laboratory O2 Sat by Pulse Oximetry: 99 - NORMAL/NOT HYPOXIC - Radiology Xray Interpretation: No Acute Changes - STIGMATA OF COPD Radiology Interpretation Completed By: Radiologist Re-Evaluation - Re-Evaluation First Eval Re-Evaluation Time: 19:50 Change: Improved - better air movement/decreased wheezing Respiratory Course/Dx - Differential Dx/Diagnosis Provider Diagnoses: acute bronchitis with bronchospasm. tobacco use Discharge - Discharge Plan Condition: Stable Disposition: HOME Prescriptions: Amoxicillin PO (*) [Amoxicillin 875 MG (*)] 875 mg PO BID #14 tab Prednisone [Deltasone] 40 mg PO DAILY #10 tab Patient Education Materials: Acute Bronchitis (ED), Bronchospasm (ED) Forms: *Work Release Referrals: Ronald Beckett [Primary Care Provider] - 1 Week Additional Instructions: you need to decrease or stop smoking your xray is concerning for COPD ALBUTEROL PUFFER 2 PUFFS 4X DAY FOR 7 DAYS THEN NEEDED FOR WHEEZING
[2017-07-15] MEDS ORDERED: Amoxicillin/Clavulanate TAB* 250 MG PO ONE (19:16)
[2017-07-15] MEDS ORDERED: predniSONE TAB* 20 MG PO ONE (19:16)
[2017-07-15] MEDS ORDERED: Amoxicillin PO (*) 500 MG CAP PO ONE (19:17)
[2017-07-15] MEDS ORDERED: Amoxicillin PO (*) 250 MG CAP PO ONE (19:19)
[2017-07-15] MEDS ORDERED: Albuterol HFA INHALER* 8 gm MDI INH ONE (19:20)
--- NOTE | 2017-07-15 19:37 | RAD ---
INDICATION: Shortness of breath for one month. Coughing, chest pain. History of tobacco use. COMPARISON: June 03, 2017 CT. TECHNIQUE: Dual energy PA and routine lateral views of the chest were obtained. REPORT: Elevated lung volumes. Diffuse mild prominence of the interstitial markings. Minimal patchy rarefaction of upper lung zone interstitial markings. No pulmonary infiltrate, focal pulmonary lesion, pleural effusion, pneumothorax. The heart, pulmonary vasculature, and mediastinal contours are unremarkable. Anterior cervical fusion hardware and gallbladder fossa surgical clips noted. IMPRESSION: Stigmata of obstructive lung disease. No acute pulmonary or cardiac process evident.
== END 2017-07-15 20:03 | disposition home or self-care (01) ==
LOC: UCEAST 18:03
DX: J20.9 Acute bronchitis, unspecified (principal); K21.9 Gastro-esophageal reflux disease without esophagitis; Z88.2 Allergy status to sulfonamides
CPT/HCPCS: 71020; 99213; A9270-GY; G0463; J7512; J7644

== ENCOUNTER 2017-07-17 09:54 | Emergency (ER) | payer SELFPAY ==
[2017-07-17] MEDS ORDERED: Ibuprofen TAB* 600 MG PO ONE (11:52)
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
[2017-07-17 12:58] VITALS: BP 123/67
== END 2017-07-17 12:56 | disposition home or self-care (01) ==
LOC: ED 09:54
DX: S63.92XA Sprain of unspecified part of left wrist and hand, initial encounter (principal); Y09 Assault by unspecified means; Y92.9 Unspecified place or not applicable; F17.210 Nicotine dependence, cigarettes, uncomplicated
CPT/HCPCS: 99282; A9270-GY

== ENCOUNTER 2017-12-30 13:21 | Emergency (ER) | payer SELFPAY ==
[2017-12-30 13:31] VITALS: BP 142/69
[2017-12-30] MEDS ORDERED: Nitroglycerin TAB 0.4 MG* 0.4 MG TAB SL ONE (13:40)
[2017-12-30] MEDS ORDERED: Aspirin 81 mg CHEW TAB* 81 MG TAB.CHEW PO ONE (13:40)
--- NOTE | 2017-12-30 13:52 | UC ---
Cardiac HPI - HPI Summary HPI Summary: 57 yo female with onset yesterday of SSCP radiating to back associated with SOB doing a lot of burping and feeling gassy so she to omeprazole and antacids with out relief pain worse today worsens with deep breath - History of Current Complaint Chief Complaint: UCChestPain Stated Complaint: CHEST PAIN Time Seen by Provider: 12/30/17 13:22 Hx Obtained From: Patient Onset/Duration: Gradual Onset, Lasting Days Timing: Constant Initial Severity: Moderate Current Severity: Moderate Pain Intensity: 8 - radiates to back Chest Pain Location: Mid Sternal, Upper Sternal Character: Pressure/Squeezing, Sharp/Stabbing Aggravating Factor(s): Nothing Alleviating Factor(s): Nothing Associated Signs & Symptoms: Positive: Chest Pain, Weakness, SOB - Allergy/Home Medications Allergies/Adverse Reactions: Allergies Allergy/AdvReac Type Severity Reaction Status Date / Time MS Sulfamethoxazole Allergy Severe Rash Verified 12/30/17 13:30 w/Trimethoprim [From Bactrim] Sulfa (Sulfonamide Allergy Rash Verified 12/30/17 13:30 Antibiotics) Home Medications: Home Medications Bismuth Subsalicylate [Pepto-Bismol] 262 mg PO 12/30/17 [History] Calcium Carb/Magnesium Hydrox [Rolaids 550-110 mg] 2 chw PO 12/30/17 [History] Calcium Carbonate [Tums] 500 mg PO 12/30/17 [History] Famotidine TAB* [Pepcid 20 MG TAB*] 20 mg PO BID 12/30/17 [History Confirmed ] PMH/Surg Hx/FS Hx/Imm Hx Previously Healthy: Yes Respiratory History: COPD - ?, Bronchitis Other History Of: Negative For: Anticoagulant Therapy - Surgical History Surgical History: Yes Surgery Procedure, Year, and Place: C-SECTIONS X3, NECK SURGERY, SHOULDER SURGERY, CHOLECYSTECTOMY - Family History Known Family History: Positive: Cardiac Disease, Other - Cancer...Mom had pancreatic CA and had a PE - Social History Alcohol Use: None Substance Use Type: None Smoking Status (MU): Current Every Day Smoker Type: Cigarettes Amount Used/How Often: 10 cigs Have You Smoked in the Last Year: Yes - Immunization History Most Recent Influenza Vaccination: doesn't get Review of Systems Constitutional: Negative Skin: Negative Eyes: Negative ENT: Negative Respiratory: Shortness Of Breath Cardiovascular: Chest Pain Gastrointestinal: Negative Genitourinary: Negative Motor: Negative Neurovascular: Negative Musculoskeletal: Negative Neurological: Negative Psychological: Negative Is Patient Immunocompromised?: No All Other Systems Reviewed And Are Negative: Yes Physical Exam Triage Information Reviewed: Yes Appearance: Well-Nourished, Ill-Appearing, Pain Distress Vital Signs: Initial Vital Signs Temp 97.7 F 12/30/17 13:26 Pulse 81 12/30/17 13:26 Resp 20 12/30/17 13:26 BP 142/69 12/30/17 13:26 Pulse Ox 98 12/30/17 13:26 Vital Signs Reviewed: Yes Eyes: Positive: Conjunctiva Clear ENT: Positive: Hearing grossly normal. Negative: Nasal congestion, Nasal drainage, Trismus, Muffled voice, Dental tenderness Neck: Positive: Supple Respiratory: Positive: Normal breath sounds, No respiratory distress, No accessory muscle use, Wheezing - scatterred Cardiovascular: Positive: RRR, No Murmur Abdomen Description: Positive: Nontender, No Organomegaly Bowel Sounds: Positive: Present Musculoskeletal: Positive: ROM Intact, No Edema Neurological: Positive: Alert Psychological Exam: Normal Skin Exam: Normal Diagnostics - Laboratory Diagnostic Studies Completed/Ordered: pox 98% comment: normal/not hypoxic - EKG Cardiac Rate: NL Cardiac Rhythm: Sinus: Normal Ectopy: None ST Segment: Non-Specific - Assessment/Plan Course Of Treatment: to [facility] via EMS. d/w ED attending - Clinical Impression Provider Diagnoses: chest pain of uncertain cause Discharge - Sign-Out/Discharge Documenting (check all that apply): Discharge - Discharge Plan Condition: Guarded Disposition: [facility] FAC Referrals: Ronald Beckett [Primary Care Provider] - - Billing Disposition and Condition Condition: GUARDED Disposition: [facility]
== END 2017-12-30 14:03 | disposition short-term general hospital (02) ==
LOC: UCEAST 13:21
DX: R07.89 Other chest pain (principal); J44.9 Chronic obstructive pulmonary disease, unspecified; Z88.2 Allergy status to sulfonamides; F17.210 Nicotine dependence, cigarettes, uncomplicated
CPT/HCPCS: 93005; 99213; A9270-GY; G0463

== ENCOUNTER 2017-12-30 14:20 | Observation (INO) | payer SELFPAY ==
[~2017-12-30 14:20] MED LIST changes: +Aspirin TAB* 325 MG PO ONE; -Cetirizine* 10 MG TAB PO SCH
[2017-12-30] MEDS ORDERED: Pantoprazole TAB (NF) 40 MG TAB PO ONE (15:08)
[2017-12-30] MEDS ORDERED: Acetaminophen TAB* 325 MG PO ONE (15:08)
--- NOTE | 2017-12-30 15:32 | RAD ---
INDICATION: Cough. Short of breath COMPARISON: July 15, 2017 TECHNIQUE: An AP portable view obtained at 1515 hours is submitted. FINDINGS: Bones/Soft Tissues: There are no acute bony findings. There is prior cervical fusion. Cardiomediastinal: The cardiomediastinal silhouette is normal. Lungs: There are no infiltrates. Pleura: There are no pleural effusions. Other: None IMPRESSION: NO ACTIVE DISEASE.
[2017-12-30 15:34] LABS: ABS Basophils 0.1 10^3/ul (0-0.2); ABS Eosinophils 0.1 10^3/ul (0-0.6); ABS Lymphocytes 2.1 10^3/ul (1.0-4.8); ABS Monocytes 0.6 10^3/ul (0-0.8); ABS Neutrophils 6.4 10^3/ul (1.5-7.7); ABS Nucleated RBC 0 10^3/ul; Eosinophil % 1.3 % (0-6); Hematocrit 41 % (35-47); Hemoglobin 14.1 g/dl (12.0-16.0); Lymphocyte % 22.1 % (25-47); Mean Corpuscular HGB Conc 35 g/dl (31-36); Mean Corpuscular Hemoglobin 31 pg (27-31); Mean Corpuscular Volume 89 fL (80-97); Mean Platelet Volume 9.3 um3 (7.4-10.4); Nucleated Red Blood Cells % 0; Platelet Count 158 10^3/ul (150-450); Red Blood Count 4.59 10^6/ul (4.0-5.4); Red Cell Distribution Width 14 % (10.5-15); White Blood Count 9.3 10^3/ul (3.5-10.8)
[2017-12-30 15:42] LABS: INR 0.94 (0.77-1.02)
[2017-12-30 16:18] LABS: EGFR Non-African American 71.4 (>60)
[2017-12-30] MEDS ORDERED: Iohexol 350* (CONTRAST) 500 ML MDV IV ONE (16:20)
[2017-12-30] MEDS ORDERED: Omeprazole CAP* 20 MG PO ONE (16:30)
--- NOTE | 2017-12-30 17:29 | RAD ---
STUDY: CT angiography of the chest, abdomen and pelvis. INDICATION: Chest pain radiating to the back COMPARISON: Similar examination dated June 03, 2017 TECHNIQUE: Multidetector CT angiography of the chest, abdomen and pelvis were obtained from the lung apices to the ischial tuberosities after the intravenous injection of 99 mL Omnipaque 350. Reformats were created in the coronal and sagittal planes. 3-D vascular imaging was created from the source images and reviewed as well. ANGIOGRAPHIC FINDINGS: There is no pathologic aortic aneurysm or dissection. There is coarse calcification noted at the ascending aorta extending to the arch. There is mild calcification at the infrarenal abdominal aorta extending into the common iliac arteries. The branch arteries off of the arch of the aorta and abdominal aorta appear to be adequately patent. Contrast is seen filling as far distal as the proximal superficial femoral arteries bilaterally. NON ANGIOGRAPHIC FINDINGS: Chest: The lungs are clear. There are no large pleural effusions. There is no mediastinal or hilar lymphadenopathy. The heart is grossly normal in appearance. Abdomen & Pelvis: The liver, spleen, pancreas and adrenal glands are grossly normal in appearance. The gallbladder is surgically absent. The kidneys are normal in appearance without focal mass, calcification or signs of hydronephrosis. The renal cortices enhance promptly and symmetrically on arterial phase imaging. Evaluation of the gastrointestinal tract is limited in the absence of oral contrast. The small and large bowel are not distended. The appendix is not discretely visualized but there are no focal inflammatory changes of the right lower quadrant characteristic with acute appendicitis. Scattered distal colonic rectus sigmoid diverticula are seen but none exhibit focal inflammatory change. There is no gross retroperitoneal or mesenteric lymphadenopathy. The pelvic viscera is normal in appearance. Multilevel degenerative changes of the thoracic and lumbar spine include loss of intervertebral disc height.There are no sinister bone lesions. IMPRESSION: 1. No acute abnormality of this CTA examination of the chest, abdomen and pelvis. 2. Chronic, degenerative and iatrogenic findings described in the body the report
[2017-12-30] MEDS ORDERED: Calcium Carbonate CHEW TAB* 500 MG (TUMS) PO PRN (18:14)
[2017-12-30] MEDS ORDERED: Zolpidem TAB* 5 MG PO PRN (18:24)
[2017-12-30] MEDS ORDERED: Nicotine Inhaler* 10 MG AMP INH PRN (18:45)
[2017-12-30] MEDS ORDERED: Mouth Piece, Nicotine* 1 EACH CARTRIDGE INH PRN (18:45)
[2017-12-30] MEDS ORDERED: Famotidine TAB* 20 MG PO SCH (21:00)
--- NOTE | 2017-12-30 22:49 | HP ---
CC: JOSE CRUZ Brown * HISTORY AND PHYSICAL: DATE OF ADMISSION: 12/30/17 PRIMARY CARE PROVIDER: JOSE CRUZ Brown CHIEF COMPLAINT: Chest pain. HISTORY OF PRESENT ILLNESS: Ms. Brewer is a 57-year-old female, who has a history of ongoing tobacco abuse and anxiety, who presents to the emergency room with complaints of chest pain. The patient states that her discomfort began approximately 2 days ago. She was at work at the [employer] when the discomfort began. She describes it as a burning sensation within the center of her chest radiating straight through her back. The pain does not radiate anywhere. She has had no associated shortness of breath or nausea. Despite taking Tums, Rolaids, and omeprazole, her discomfort persisted. She does state that the discomfort did improve with nitroglycerin in the emergency room. She continues to, however, have discomfort within her shoulder blades bilaterally. She is very anxious about being admitted to the hospital and is hesitant to do so. It was mentioned to her that a cardiac catheterization may be necessary and this upset her. Of note, the patient's significant other indicates that she drinks copious amount of coffee daily. He estimates that she drinks approximately 10 cups of coffee per day. She states that it is closer to only 6. PAST MEDICAL HISTORY: 1. Anxiety. 2. Tobacco abuse. 3. GERD. PAST SURGICAL HISTORY: 1. Cholecystectomy. 2. Appendectomy. 3. C-sections x3. 4. Left shoulder surgery. 5. Cervical disk surgery. MEDICATIONS: 1. Pepto-Bismol 262 mg p.o. b.i.d. p.r.n. indigestion. 2. Rolaids 2 chews p.o. b.i.d. p.r.n. indigestion. 3. Tums 500 mg p.o. b.i.d. p.r.n. indigestion. 4. Ibuprofen 800 mg p.o. b.i.d. p.r.n. pain. 5. Famotidine 20 mg p.o. b.i.d. 6. Sertraline 50 mg p.o. daily. ALLERGIES: BACTRIM. FAMILY HISTORY: Father at the age of 70 from CHF, mother at the age of 55 of pancreatic cancer. SOCIAL HISTORY: The patient smokes 1 pack per day and has done so for approximately 40 years. She denies any regular alcohol use. She works at the [employer]. She has 3 children. REVIEW OF SYSTEMS: As per HPI and otherwise negative. PHYSICAL EXAMINATION GENERAL: The patient is a well-developed, middle-aged female sitting in a stretcher, in no acute distress. VITAL SIGNS: Blood pressure 123/63, pulse 69, respirations 15, temp 98.8, O2 sat 97% on room air. HEENT: Pupils are equal and round. Extraocular muscles are intact. Oropharynx is clear. Oral mucosa is moist. The patient wears upper and lower dentures. There is no submandibular, cervical, or supraclavicular adenopathy. Thyroid is not enlarged. No thyroid nodules noted. PULMONARY: Lungs are clear, but breath sounds are diminished in all lung velarde. CARDIAC: Normal S1, S2. Regular rate and rhythm. I do not appreciate any murmurs. She is tender to palpation over the sternum. There is no lower extremity edema. ABDOMEN: Bowel sounds are present. Abdomen is soft, nontender, nondistended. MUSCULOSKELETAL: There is no cyanosis or clubbing of the digits. There is full active range of motion of all 4 extremities. NEURO: Cranial nerves II through XII are grossly intact. Sensation is intact to light touch throughout. Strength is 5/5 and symmetric in both upper and lower extremities bilaterally. PSYCH: The patient is alert. She is oriented x3. Affect appears appropriate. SKIN: Warm and dry. There are no rashes. DIAGNOSTIC STUDIES/LAB DATA: WBC 9.3, hemoglobin 14.1, hematocrit 41, platelets 158. INR 0.94. Sodium 139, potassium 3.6, chloride 104, CO2 23, BUN 10, creatinine 0.82, glucose 136, lactic acid 1.1, calcium 9.5. Bilirubin 0.4, AST 20, ALT 23, alk phos 108. Troponin 0. BNP 23. Albumin is 4.3. EKG reveals normal sinus rhythm with inverted T waves in the anterior leads. This is unchanged from prior EKG. Chest x-ray reveals no active disease. CTA chest, abdomen, and pelvis: No acute abnormality of this CTA examination of the chest, abdomen, and pelvis. ASSESSMENT AND PLAN: Ms. Brewer is a 57-year-old female with a history of being overweight and ongoing tobacco abuse, who presents to the emergency room with complaints of chest pain. 1. Chest pain. The patient's story is quite atypical. She was admitted for the similar pain in May 2017 at which time she was ruled out and underwent a nuclear stress test. This stress test did not reveal any evidence of definite fixed or reversible perfusion defects. There was, however, an elevated TID ratio, which may be associated with 3-vessel disease. The patient has not had any other discomfort up until a couple of days ago. It does seem like it is more likely GI in nature. I question if maybe she could have peptic ulcer disease related to the significant amount of coffee she drinks daily as well as the p.r.n. ibuprofen use. For now, she will be admitted under observation status to be ruled out for an acute coronary syndrome. If she is ruled out, I will speak with Cardiology in the morning to determine if it is worthwhile repeating her stress test or if cardiac catheterization may be warranted. If it is felt that neither of these would be warranted, perhaps GI evaluation should be considered. 2. Tobacco abuse. I will order a nicotine inhaler to be used as needed. 3. Gastroesophageal reflux disease. We will continue the famotidine and p.r.n. Tums. 4. DVT prophylaxis. According to the Adult Thrombosis Prophylaxis Risk Factor Assessment Guide, the patient has a total risk factor score of 2, making her moderate risk. Ambulation will be utilized as DVT prophylaxis. 5. Code status is full. TIME SPENT: Fifty-five minutes was spent admitting this patient. [id number]/[facility] #: [id number] LIUDMILA
[2017-12-31] MEDS ORDERED: Acetaminophen TAB* 325 MG PO PRN (04:44)
[2017-12-31 08:10] VITALS: BP 133/56
[2017-12-31] MEDS ORDERED: Omeprazole CAP* 20 MG PO ONE (08:35)
[2017-12-31] MEDS ORDERED: Sertraline* 50 MG TAB PO SCH (09:00)
--- NOTE | 2017-12-31 21:40 | ED ---
Saulo Gates Julia, scribed for Magno Neri on 12/30/17 at 1501 . HPI Chest Pain - HPI Summary HPI Summary: This patient is a 57 year old F BIBA to [facility] with a chief complaint of chest pain described as heaviness radiating to the upper back for the past two days that is currently slightly improved. The patient rates the pain 7/10 in severity.Patient reports belching and indigestion. Patient denies nausea, dizziness, and diaphoresis. Pt denies CP and SOB with exertion at baseline. Pt given Nitro at convenient care and a second dose by EMS. Patient had a previous [place], years ago. - History of Current Complaint Chief Complaint: EDChestPainROMI Time Seen by Provider: 12/30/17 14:55 Hx Obtained From: Patient, EMS Onset/Duration: Started Days Ago Timing: Constant Initial Severity: Severe Current Severity: Moderate Pain Intensity: 7 Pain Scale Used: 0-10 Numeric Chest Pain Location: Mid Sternal Chest Pain Radiates: Yes Chest Pain Radiates To:: Back Character: Heaviness Alleviating Factor(s): NTG 123 Associated Signs and Symptoms: Positive: Other: - belching and indigestion - Additional Pertinent History Primary Care Physician: SIMONE - Allergy/Home Medications Allergies/Adverse Reactions: Allergies Allergy/AdvReac Type Severity Reaction Status Date / Time Sulfa (Sulfonamide Allergy Rash Verified 12/30/17 14:23 Antibiotics) Home Medications: Home Medications Bismuth Subsalicylate [Pepto-Bismol] 262 mg PO BID PRN 12/30/17 [History Confirmed 12/30/17] Calcium Carb/Magnesium Hydrox [Rolaids Chewable Tablet] 2 chw PO BID PRN [History Confirmed 12/30/17] Sertraline* [Zoloft*] 50 mg PO DAILY 12/30/17 [History Confirmed 12/30/17] PMH/Surg Hx/FS Hx/Imm Hx Endocrine/Hematology History: Denies: Hx Anticoagulant Therapy, Hx Blood Disorders, Hx Diabetes, Hx Thyroid Disease Cardiovascular History: Reports: Hx Angina, Hx Myocardial Infarction, Other Cardiovascular Problems/Disorders - Hx of mild PERLA Denies: Hx Congestive Heart Failure, Hx Coronary Artery Disease, Hx Hypercholesterolemia, Hx Hypertension, Hx Valvular Heart Disease Respiratory History: Denies: Hx Asthma Comment Only: Hx Chronic Obstructive Pulmonary Disease (COPD) - MAYBE GI History: Reports: Other GI Disorders - acid reflux Denies: Hx Ulcer History: Denies: Hx Renal Disease Sensory History: Reports: Hx Contacts or Glasses Denies: Hx Hearing Aid Opthamlomology History: Reports: Hx Contacts or Glasses Psychiatric History: Reports: Hx Anxiety - Surgical History Surgery Procedure, Year, and Place: C-SECTIONS X3, NECK SURGERY, SHOULDER SURGERY, CHOLECYSTECTOMY Infectious Disease History: No Infectious Disease History: Denies: Hx Clostridium Difficile, Hx Hepatitis, Hx Human Immunodeficiency Virus (HIV), Hx of Known/Suspected MRSA, Hx Shingles, Hx Tuberculosis, Hx Known/ Suspected VRE, Hx Known/Suspected VRSA, History Other Infectious Disease, Traveled Outside the [place] in Last 30 Days - Family History Known Family History: Positive: Cardiac Disease, Other - Cancer...Mom had pancreatic CA and had a PE - Social History Alcohol Use: None Hx Substance Use: No Substance Use Type: Reports: None Hx Tobacco Use: Yes Smoking Status (MU): Current Every Day Smoker Type: Cigarettes Amount Used/How Often: 10 cigs Have You Smoked in the Last Year: Yes Review of Systems Negative: Skin Diaphoresis Positive: Chest Pain Negative: Shortness Of Breath Positive: Other - belching and indigestion. Negative: Nausea Neurological: Negative - dizziness All Other Systems Reviewed And Are Negative: Yes Physical Exam - Summary Physical Exam Summary: Appearance: Well appearing, no pain distress Skin: warm, dry, reflects adequate perfusion Head/face: normal Eyes: EOMI, NARINDER ENT: normal Neck: supple, non-tender Respiratory: CTA, breath sounds present Cardiovascular: RRR, pulses symmetrical Abdomen: non-tender, soft Bowel: present Musculoskeletal: normal, strength/ROM intact Neuro: normal, sensory motor intact, A&Ox3 Triage Information Reviewed: Yes Vital Signs On Initial Exam: Initial Vitals Temp Pulse Resp BP Pulse Ox 98.8 F 85 16 114/65 96 12/30/17 14:21 12/30/17 14:21 12/30/17 14:21 12/30/17 14:21 12/30/17 14:21 Vital Signs Reviewed: Yes Diagnostics - Vital Signs Vital Signs Temp Pulse Resp BP Pulse Ox 12/30/17 14:21 98.8 F 85 16 114/65 96 - Laboratory Lab Results: Lab Results 12/30/17 12/30/17 12/30/17 Range/Units 13:50 13:50 13:50 WBC 9.3 (3.5-10.8) 10^3/ul RBC 4.59 (4.0-5.4) 10^6/ul Hgb 14.1 (12.0-16.0) g/dl Hct 41 (35-47) % MCV 89 (80-97) fL MCH 31 (27-31) pg MCHC 35 (31-36) g/dl RDW 14 (10.5-15) % Plt Count 158 (150-450) 10^3/ul MPV 9.3 (7.4-10.4) um3 Neut % (Auto) 69.1 (38-83) % Lymph % (Auto) 22.1 L (25-47) % [place] % (Auto) 6.9 (0-7) % Eos % (Auto) 1.3 (0-6) % Baso % (Auto) 0.6 (0-2) % Absolute Neuts (auto) 6.4 (1.5-7.7) 10^3/ul Absolute Lymphs (auto) 2.1 (1.0-4.8) 10^3/ul Absolute Monos (auto) 0.6 (0-0.8) 10^3/ul Absolute Eos (auto) 0.1 (0-0.6) 10^3/ul Absolute Basos (auto) 0.1 (0-0.2) 10^3/ul Absolute Nucleated RBC 0 10^3/ul Nucleated RBC % 0 INR (Anticoag Therapy) 0.94 (0.77-1.02) APTT 32.6 (26.0-36.3) seconds Sodium (139-145) mmol/L Potassium (3.5-5.0) mmol/L Chloride (101-111) mmol/L Carbon Dioxide (22-32) mmol/L Anion Gap (2-11) mmol/L BUN (6-24) mg/dL Creatinine (0.51-0.95) mg/dL Est GFR ( Amer) (>60) Est GFR (Non-Af Amer) (>60) BUN/Creatinine Ratio (8-20) Glucose (70-100) mg/dL Lactic Acid (0.5-2.0) mmol/L Calcium (8.6-10.3) mg/dL Total Bilirubin (0.2-1.0) mg/dL AST (13-39) U/L ALT (7-52) U/L Alkaline Phosphatase (34-104) U/L Troponin I (<0.04) ng/mL B-Natriuretic Peptide 23 ( - 100) pg/mL Total Protein (6.4-8.9) g/dL Albumin (3.2-5.2) g/dL Globulin (2-4) g/dL Albumin/Globulin Ratio (1-3) 12/30/17 12/30/17 Range/Units 13:50 13:50 WBC (3.5-10.8) 10^3/ul RBC (4.0-5.4) 10^6/ul Hgb (12.0-16.0) g/dl Hct (35-47) % MCV (80-97) fL MCH (27-31) pg MCHC (31-36) g/dl RDW (10.5-15) % Plt Count (150-450) 10^3/ul MPV (7.4-10.4) um3 Neut % (Auto) (38-83) % Lymph % (Auto) (25-47) % [place] % (Auto) (0-7) % Eos % (Auto) (0-6) % Baso % (Auto) (0-2) % Absolute Neuts (auto) (1.5-7.7) 10^3/ul Absolute Lymphs (auto) (1.0-4.8) 10^3/ul Absolute Monos (auto) (0-0.8) 10^3/ul Absolute Eos (auto) (0-0.6) 10^3/ul Absolute Basos (auto) (0-0.2) 10^3/ul Absolute Nucleated RBC 10^3/ul Nucleated RBC % INR (Anticoag Therapy) (0.77-1.02) APTT (26.0-36.3) seconds Sodium 139 (139-145) mmol/L Potassium 3.6 (3.5-5.0) mmol/L Chloride 104 (101-111) mmol/L Carbon Dioxide 23 (22-32) mmol/L Anion Gap 12 H (2-11) mmol/L BUN 10 (6-24) mg/dL Creatinine 0.82 (0.51-0.95) mg/dL Est GFR ( Amer) 91.8 (>60) Est GFR (Non-Af Amer) 71.4 (>60) BUN/Creatinine Ratio 12.2 (8-20) Glucose 136 H (70-100) mg/dL Lactic Acid 1.1 (0.5-2.0) mmol/L Calcium 9.5 (8.6-10.3) mg/dL Total Bilirubin 0.40 (0.2-1.0) mg/dL AST 20 (13-39) U/L ALT 23 (7-52) U/L Alkaline Phosphatase 108 H (34-104) U/L Troponin I 0.00 (<0.04) ng/mL B-Natriuretic Peptide ( - 100) pg/mL Total Protein 7.1 (6.4-8.9) g/dL Albumin 4.3 (3.2-5.2) g/dL Globulin 2.8 (2-4) g/dL Albumin/Globulin Ratio 1.5 (1-3) Result Diagrams: 12/30/17 13:50 12/30/17 13:50 Lab Statement: Any lab studies that have been ordered have been reviewed, and results considered in the medical decision making process. - Radiology CXR Radiology Interpretation Completed By: Radiologist - NO ACTIVE DISEASE. ED Physician has reviewed this report. - CT Chest/A/P CT Interpretation Completed By: Radiologist - 1. No acute abnormality of this CTA examination of the chest, abdomen and pelvis. 2. Chronic, degenerative and iatrogenic findings described in the body the report ED Physician has reviewed this report. - EKG 1446 Cardiac Rate: NL - at 72 BPM EKG Rhythm: Sinus Rhythm EKG Interpretation: RBBB Chest Pain Course/Dx - Course Course Of Treatment: Pt presents with chest pain described as heaviness radiating to the upper back for the past two days that is currently slightly improved. Patient reports belching and indigestion. Patient had a previous [place], years ago. An EKG and CXR are unremarkable. A Chest/A/P CT reveals chronic/ degenerative iatrongenic changes. Patient is given ASA and Omeprazole. Pt given nitro by EMS. Bloodwork is unremarkable. Pt is admitted to Dr. Gómez to rule out [place]. - Chest Pain Differential Diagnosis/HQI/PQRI: Acute [place], ACS, Aortic Aneurysm, Lower Respiratory Infection, Pulmonary Edema, Pulmonary Embolism - Diagnoses Provider Diagnoses: Chest pain, rule out acute myocardial infarction, Chest pain - Provider Notifications Discussed Care Of Patient With: Maya Gómez - hospitalist Time Discussed With Above Provider: 17:45 Instructed by Provider To: Admit As Inpatient Discharge - Sign-Out/Discharge Documenting (check all that apply): Discharge - admit - Discharge Plan Condition: Fair Disposition: ADMITTED TO [facility] - Billing Disposition and Condition Condition: FAIR [place] [place] The documentation as recorded by the Saulo pirngle Julia accurately reflects the service I personally performed and the decisions made by Daron oleary Emmanuel.
--- NOTE | 2018-01-01 14:19 | DS ---
CC: Primary Care Provider, JOSE CRUZ Brown * DISCHARGE SUMMARY: DATE OF ADMISSION: 12/30/17 DATE OF DISCHARGE: 12/31/17 PRINCIPAL DIAGNOSIS: Noncardiac chest pain. SECONDARY DIAGNOSES: 1. Tobacco abuse. 2. Anxiety. DISCHARGE MEDICATIONS: 1. Pepto-Bismol 262 mg p.o. b.i.d. p.r.n. indigestion. 2. Rolaids 2 chews p.o. b.i.d. p.r.n. indigestion. 3. Tums 500 mg p.o. q.4 hours p.r.n. indigestion. 4. Zoloft 50 mg p.o. daily. 5. Chantix 0.5 mg p.o. once daily x3 days and twice daily x4 days, then 1 mg p.o. b.i.d. 6. Nexium 20 mg p.o. daily. HOSPITAL COURSE: Ms. Brewer is a 67-year-old female who presented to the emergency room on 12/30/17 with complaints of burning chest pain. She was admitted and ruled out an acute coronary syndrome. The patient had already had a stress test in May 2017, which was negative. This is in the setting of essentially the same quality of chest discomfort that she is having now. I did discuss with the patient that I feel this is most likely GI in nature. It sounds as if she has been having significant acid reflux symptoms recently. The patient has been explained the pathogenesis of developing NV with plaque rupture. The patient has been instructed that she needs to stop smoking now. The patient is actually quite motivated and requested a prescription for Chantix which is provided. The [facility] Smokers' Quitline information is also provided to the patient. The patient has also been instructed to work on diet and exercise as her lipid profile in May 2017 was not the most optimal. I have instructed the patient to return to the emergency room if she has any further chest pain. She understands that she could have an NV at any point, but at this point, it seems given the negative stress test in May with very similar chest pain to what she was having now, it seems that this is unlikely to be cardiac in nature currently. On the day of discharge, the patient is awake, alert and oriented, lying in bed in no acute distress. Vital signs are stable and she is afebrile. Cardiac exam reveals normal S1, S2 with regular rate and rhythm. Lungs are clear to auscultation bilaterally. Abdomen is soft, nontender, nondistended. FOLLOWUP CONCERNS: The patient is being discharged home today, 12/31/17. ACTIVITY LEVEL: As tolerated. DIET: Low fat. CONDITION ON DISCHARGE: Stable. TIME SPENT: Thirty five minutes was spent discharging this patient. [id number]/CPS #: [id number] MTDD
== END 2017-12-31 09:44 | disposition home or self-care (01) ==
LOC: ED 14:20 → MEDTELE 18:04
PROVIDERS: ADMIT Hospitalist; ATTEND Hospitalist
DX: R07.9 Chest pain, unspecified (principal); F41.9 Anxiety disorder, unspecified; F17.210 Nicotine dependence, cigarettes, uncomplicated; Z79.899 Other long term (current) drug therapy; Z88.2 Allergy status to sulfonamides
CPT/HCPCS: 36415; 71045; 71275; 74174; 80053; 83605; 83880; 84484; 85025; 85610; 85730; 93005; 99283; A9270-GY; G0378; Q9967

== ENCOUNTER 2018-02-04 18:52 | Emergency (ER) | payer SELFPAY ==
[2018-02-04 19:07] VITALS: BP 126/73
[2018-02-04] MEDS ORDERED: Tetan/Diph/Pertus SYR(Tdap)* 0.5 ML SYR(BOOSTRIX) use SYR IM ONE (19:16)
--- NOTE | 2018-02-04 19:17 | UC ---
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 she did not hit head. has an abrasion on her left elbow and her left schmidt. she thinks not up to date with tetanus. left directly from work. no other concern - History of Current Complaint Chief Complaint: UCUpperExtremity Time Seen by Provider: 02/04/18 18:55 Stated Complaint: elbow injury Hx Obtained From: Patient Hx Last Menstrual Period: post menopausal Onset/Duration: Sudden Onset Timing: Constant Pain Intensity: 8 - Allergy/Home Medications Allergies/Adverse Reactions: Allergies Allergy/AdvReac Type Severity Reaction Status Date / Time Sulfa (Sulfonamide Allergy Rash Verified 12/30/17 14:23 Antibiotics) Review of Systems Skin: Rash Musculoskeletal: Arthralgia Is Patient Immunocompromised?: No All Other Systems Reviewed And Are Negative: Yes PMH/Surg Hx/FS Hx/Imm Hx Previously Healthy: Yes Other History Of: Negative For: Anticoagulant Therapy - Surgical History Surgical History: Yes Surgery Procedure, Year, and Place: C-SECTIONS X3, NECK SURGERY, SHOULDER SURGERY, CHOLECYSTECTOMY - Family History Known Family History: Positive: Cardiac Disease, Other - Cancer...Mom had pancreatic CA and had a PE - Social History Occupation: Employed Full-time Alcohol Use: Occasionally Substance Use Type: None Smoking Status (MU): Heavy Every Day Tobacco Smoker Type: Cigarettes Amount Used/How Often: 10 cigs Have You Smoked in the Last Year: Yes - Immunization History Most Recent Influenza Vaccination: doesn't get Physical Exam Triage Information Reviewed: Yes Appearance: Well-Appearing, No Pain Distress, Well-Nourished Vital Signs: Initial Vital Signs Temp 98.6 F 02/04/18 18:59 Pulse 84 02/04/18 18:59 Resp 16 02/04/18 18:59 BP 126/73 02/04/18 18:59 Pulse Ox 98 02/04/18 18:59 Vital Signs Reviewed: Yes Respiratory Exam: Normal Cardiovascular Exam: Normal Musculoskeletal Exam: Normal Musculoskeletal: Positive: Strength Intact - no pain with movement against resistace in the elbow/wrist/shoudler. strength 5/5. sensation intact. brisk cap refill. brisk pulses . normal exam, ROM Intact, No Edema Neurological Exam: Normal Psychological Exam: Normal Skin: Positive: rashes - abrasion mild left elbow and left anterior schmidt. no bleeding. no induration. Course/Dx - Course Course Of Treatment: with FROM of the elbow and no pain with movement with and without resistance no xray was done but if pain persists worsens then RTO for xray but not warranted based on clinical exam today - Diagnoses Provider Diagnoses: Left elbow abrasion Discharge - Sign-Out/Discharge Documenting (check all that apply): Discharge/Admit/Transfer - Discharge Plan Condition: Good Disposition: HOME Patient Education Materials: Abrasion (ED) Referrals: Ronald Beckett [Primary Care Provider] - 4 Days - Billing Disposition and Condition Condition: GOOD Disposition: HOME
== END 2018-02-04 19:31 | disposition home or self-care (01) ==
LOC: UCEAST 18:52
DX: S50.312A Abrasion of left elbow, initial encounter (principal); S80.812A Abrasion, left lower leg, initial encounter; W18.30XA Fall on same level, unspecified, initial encounter; Y93.89 Activity, other specified; Y92.9 Unspecified place or not applicable; Y99.0 Civilian activity done for income or pay; Z23 Encounter for immunization; Z88.2 Allergy status to sulfonamides; F17.210 Nicotine dependence, cigarettes, uncomplicated
CPT/HCPCS: 90471; 90715; 99212; G0463

== ENCOUNTER 2018-05-23 13:49 | Emergency (ER) | payer SELFPAY ==
[2018-05-23 14:47] VITALS: BP 126/63
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
[2018-05-23] MEDS ORDERED: Ibuprofen TAB* 400 MG PO ONE (15:39)
--- NOTE | 2018-05-23 16:21 | RAD ---
HISTORY: left shoulder pain s/p injury at work today COMPARISONS: None VIEWS: 5, Frontal internal rotation, external rotation, outlet, and axillary views of the left shoulder FINDINGS: BONE DENSITY: Normal. BONES: There is no displaced fracture. JOINTS: There is moderate osteoarthritis of the left AC joint. ALIGNMENT: There is no dislocation. SOFT TISSUES: Unremarkable. OTHER FINDINGS: None. IMPRESSION: NO ACUTE OSSEOUS INJURY. IF SYMPTOMS PERSIST, RECOMMEND REPEAT IMAGING.
== END 2018-05-23 16:46 | disposition home or self-care (01) ==
LOC: UCEAST 13:49
DX: S43.402A Unspecified sprain of left shoulder joint, initial encounter (principal); M25.512 Pain in left shoulder; Y04.2XXA Assault by strike against or bumped into by another person, initial encounter; Y93.9 Activity, unspecified; Y92.199 Unspecified place in other specified residential institution as the place of occurrence of the external cause; Y99.0 Civilian activity done for income or pay; M19.012 Primary osteoarthritis, left shoulder; Z88.1 Allergy status to other antibiotic agents; F17.210 Nicotine dependence, cigarettes, uncomplicated
CPT/HCPCS: 99213; A9270-GY; G0463

== ENCOUNTER 2018-06-05 18:34 | Emergency (ER) | payer BC ==
[2018-06-05] MEDS ORDERED: fentaNYL* 50 MCG/ML 2 ML VIAL (100 MCG VIAL) IV ONE (19:27)
[2018-06-05] MEDS ORDERED: Ondansetron INJ* 2 MG/ML VIAL IV ONE (19:27)
[2018-06-05] MEDS ORDERED: Ketorolac INJ* 15 MG/ML 1 ML VIAL IV ONE (19:27)
--- NOTE | 2018-06-05 19:36 | ED ---
Back Pain - HPI Summary HPI Summary: Appearance: Well-appearing, Well-nourished, lying in bed comfortable Skin: Warm, dry, no obvious rash Eyes: sclera anicteric, no conjunctival pallor ENT: mucous membranes moist Neck: deferred Respiratory: No signs of respiratory distress Cardiovascular: Appears well perfused, pulses are nml Abdomen: deferred Musculoskeletal: Moving all 4 extremities without obvious discomfort, some pain upon back flexion. 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 Negative: Bladder Incontinence - Allergies/Home Medications Allergies/Adverse Reactions: Allergies Allergy/AdvReac Type Severity Reaction Status Date / Time Sulfa (Sulfonamide Allergy Rash Verified 06/05/18 18:39 Antibiotics) PMH/Surg Hx/FS Hx/Imm Hx Previously Healthy: No Endocrine/Hematology History: Denies: Hx Anticoagulant Therapy, Hx Blood Disorders, Hx Diabetes, Hx Thyroid Disease Cardiovascular History: Reports: Hx Angina, Hx Myocardial Infarction, Other Cardiovascular Problems/Disorders - Hx of mild PERLA Denies: Hx Congestive Heart Failure, Hx Coronary Artery Disease, Hx Hypercholesterolemia, Hx Hypertension, Hx Valvular Heart Disease Respiratory History: Denies: Hx Asthma Comment Only: Hx Chronic Obstructive Pulmonary Disease (COPD) - MAYBE GI History: Reports: Other GI Disorders - acid reflux Denies: Hx Ulcer History: Denies: Hx Renal Disease Sensory History: Reports: Hx Contacts or Glasses Denies: Hx Hearing Aid Opthamlomology History: Reports: Hx Contacts or Glasses Psychiatric History: Reports: Hx Anxiety, Hx Depression - Surgical History Surgery Procedure, Year, and Place: C-SECTIONS X3, NECK SURGERY, SHOULDER SURGERY, CHOLECYSTECTOMY Infectious Disease History: No Infectious Disease History: Denies: Hx Clostridium Difficile, Hx Hepatitis, Hx Human Immunodeficiency Virus (HIV), Hx of Known/Suspected MRSA, Hx Shingles, Hx Tuberculosis, Hx Known/ Suspected VRE, Hx Known/Suspected VRSA, History Other Infectious Disease, Traveled Outside the [place] in Last 30 Days - Family History Known Family History: Positive: Cardiac Disease, Other - Cancer...Mom had pancreatic CA and had a PE Family History: Cancer...Mom had pancreatic CA and had a PE - Social History Occupation: Employed Full-time Alcohol Use: Weekly Hx Substance Use: No Substance Use Type: Reports: None Hx Tobacco Use: Yes Smoking Status (MU): Heavy Every Day Tobacco Smoker Type: Cigarettes Amount Used/How Often: 10 cigs Have You Smoked in the Last Year: Yes Review of Systems Negative: Fever Positive: Cough Positive: Nausea Negative: burning, dysuria, incontinence Positive: Myalgia - bilat lower back and flank Positive: Headache All Other Systems Reviewed And Are Negative: Yes Physical Exam - Summary Physical Exam Summary: Appearance: Uncomfortable and in pain, colicky Skin: Warm, dry, no rashes or lesions on flank and back Eyes: sclera anicteric, no conjunctival pallor ENT: mucous membranes moist, pharynx appears normal Neck: Supple, nontender Respiratory: Clear to auscultation, no signs of respiratory distress Cardiovascular: Normal S1, S2. No murmurs. Normal distal pulses in tibial and radial bilaterally. Abdomen: Soft, nontender, normal active bowel sounds present Musculoskeletal: Mild left CVA tenderness Neurological: A&Ox3, awake and alert, mentation is normal, speech is fluent and appropriate Psychiatric: affect is normal, does not appear anxious or depressed Triage Information Reviewed: Yes Vital Signs On Initial Exam: Initial Vitals Temp Pulse Resp BP Pulse Ox 98.5 F 80 18 137/71 100 06/05/18 18:37 06/05/18 18:37 06/05/18 18:37 06/05/18 18:37 06/05/18 18:37 Vital Signs Reviewed: Yes Diagnostics - Vital Signs Vital Signs Temp Pulse Resp BP Pulse Ox 06/05/18 18:37 98.5 F 80 18 137/71 100 - Laboratory Result Diagrams: 06/05/18 19:34 06/05/18 19:34 Lab Statement: Any lab studies that have been ordered have been reviewed, and results considered in the medical decision making process. - CT No standard instances CT Interpretation: Positive (See Comments) - Bibasilar atelectasis, greater on the left. No renal, ureteral, or bladder calculi are seen. Diverticulosis coli. CT Interpretation Completed By: Radiologist - ED physician has reviewed this report. Discharge - Sign-Out/Discharge Documenting (check all that apply): Patient Departure - Discharge Plan Condition: Stable Disposition: HOME Prescriptions: Hydrocodone/Acetaminophen [Vicodin 5-300 mg Tablet] 1 each PO Q4HR PRN #8 tablet MDD 4 tabs PRN Reason: Pain Ondansetron [Zofran Odt] 8 mg PO TID PRN #12 tab.rapdis PRN Reason: Nausea Patient Education Materials: Flank Pain (ED) Forms: *Work Release Referrals: Ronald Beckett [Primary Care Provider] - Additional Instructions: The tests we ran tonight look good, there is nothing worrisome or that needs immediate attention. There was a small amount of blood in the urine. It is possible that the trauma you suffered could have omayra the kidney enough to cause a little blood in the urine, but those types of injuries generally heal on their own and do not require any specific treatment. Nonetheless, you should ask your own doctor to repeat a urinalysis in a few weeks. If there is still blood you will need to see a urologist for further testing. - Attestation Statements Document Initiated by Phan: Yes Documenting Scribe: Jayleen Villasenor Provider For Whom Phan is Documenting (Include Credential): Mukund Bonilla MD. Scribe Attestation: I, Jayleen Villasenor, scribed for Mukund Bonilla MD. on 06/06/18 at 0351.
[2018-06-05 19:43] LABS: ABS Basophils 0.1 10^3/ul (0-0.2); ABS Eosinophils 0.1 10^3/ul (0-0.6); ABS Lymphocytes 2.2 10^3/ul (1.0-4.8); ABS Monocytes 0.8 10^3/ul (0-0.8); ABS Neutrophils 7.9 10^3/ul (1.5-7.7); ABS Nucleated RBC 0 10^3/ul; Eosinophil % 1.2 % (0-6); Hematocrit 37 % (35-47); Hemoglobin 12.7 g/dl (12.0-16.0); Lymphocyte % 19.9 % (25-47); Mean Corpuscular HGB Conc 35 g/dl (31-36); Mean Corpuscular Hemoglobin 31 pg (27-31); Mean Corpuscular Volume 89 fL (80-97); Mean Platelet Volume 8.3 um3 (7.4-10.4); Nucleated Red Blood Cells % 0.1; Platelet Count 184 10^3/ul (150-450); Red Blood Count 4.15 10^6/ul (4.00-5.40); Red Cell Distribution Width 13 % (10.5-15); White Blood Count 11.1 10^3/ul (3.5-10.8)
[2018-06-05 19:58] LABS: EGFR Non-African American 69.4 (>60)
--- NOTE | 2018-06-05 21:27 | RAD ---
EXAM: CT Abdomen and Pelvis Without Intravenous Contrast CLINICAL HISTORY: 57 years old, female; Pain; Abdominal pain; Flank; Left; Prior surgery; Surgery date: 6+ months; Surgery type: Cholecystectomy, csections; Patient HX: Left flank pain since 330am today. Also hit by resident in back at work. ; Additional info: Left flank pain, suspect stone TECHNIQUE: Axial computed tomography images of the abdomen and pelvis without intravenous contrast. All CT scans at this facility use at least one of these dose optimization techniques: automated exposure control; mA and/or kV adjustment per patient size (includes targeted exams where dose is matched to clinical indication); or iterative reconstruction. Coronal and sagittal reformatted images were created and reviewed. COMPARISON: CTA C/A/P CTA CHEST/ABD/PEL 12/30/2017 4:42 PM FINDINGS: Lung bases: Bibasilar atelectasis is noted, greater on the left. ABDOMEN: Liver: There are no focal liver lesions present. Gallbladder and bile ducts: There has been a cholecystectomy. No ductal dilation. Pancreas: The pancreas is normal. No ductal dilation. Spleen: The spleen is normal. Adrenals: The adrenal glands are normal. Kidneys and ureters: No renal, ureteral, or bladder calculi are seen. No hydronephrosis. Stomach and bowel: Diverticulosis coli is noted, with no inflammatory changes to indicate diverticulitis. No bowel obstruction. The stomach is normal. PELVIS: Appendix: No findings to suggest acute appendicitis. Bladder: See above. Reproductive: The uterus is normal. ABDOMEN and PELVIS: Intraperitoneal space: Unremarkable. No free air. No significant fluid collection. Bones/joints: No acute fracture. No dislocation. Vasculature: Atherosclerotic vascular disease is noted. No abdominal aortic aneurysm. Lymph nodes: Unremarkable. No enlarged lymph nodes. IMPRESSION: Bibasilar atelectasis, greater on the left. No renal, ureteral, or bladder calculi are seen. Diverticulosis coli.
[2018-06-05] MEDS ORDERED: Morphine VIAL* 4 MG/ML VIAL (1 ml vial) IV ONE (21:30)
[2018-06-05] MEDS ORDERED: Morphine VIAL* 10 MG/ML 1 ML VIAL ONE (21:52)
[2018-06-06 01:04] LABS: Urine Appearance Clear; Urine Blood 1+ (Negative); Urine Color Yellow; Urine Ketones Negative (Negative); Urine Protein Negative (Negative); Urine Red Blood Cell 2+(6-10/hpf) (Absent); Urine Specific Gravity 1.015 (1.010-1.030); Urine Urobilinogen Negative (Negative); Urine White Blood Cell Trace(0-5/hpf) (Absent)
[2018-06-06] MEDS ORDERED: Acetaminophen TAB* 325 MG PO ONE (06:00)
[2018-06-06 06:17] VITALS: BP 125/65
== END 2018-06-06 06:15 | disposition home or self-care (01) ==
LOC: ED 18:34
DX: R10.9 Unspecified abdominal pain (principal); F17.210 Nicotine dependence, cigarettes, uncomplicated; J98.11 Atelectasis; I25.2 Old myocardial infarction; R31.9 Hematuria, unspecified
CPT/HCPCS: 36415; 74176; 80053; 81003; 81015; 85025; 87086; 96374; 96375; 99285; A9270-GY; J1885; J2270; J2405; J3010

== ENCOUNTER 2019-01-31 18:42 | Emergency (ER) | payer OTHER ==
[2019-01-31] MEDS ORDERED: Ibuprofen TAB* 400 MG PO ONE (19:18)
--- NOTE | 2019-01-31 19:23 | ED ---
Back Pain - HPI Summary HPI Summary: The patient is a 25 year old male who is presenting to the [facility] with a chief complaint of a fall. A client of the patient had spilled a liquid on the floor. The patient was unknown to the spillage prior to the fall. As she was walking through the area of spillage, she fell backwards. Patient reports of lower back impact and pain at her neck, lower back, right elbow, and head. No reports of syncope, arm pain or leg pain, however, patient has decreased range of motion about her neck which she states is due to the neck pain. Onset of the fall was at 1800. No medication was taken for the pain. Patient describes her surgical history and states she has had back surgery in which a "Titanium plate with 4 screws" were placed. Pain is rated to be in 8/10 in severity. Symptoms are aggravated by movement, and symptoms are alleviated by nothing. 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 Onset/Duration: Sudden Onset Onset/Duration: Started Hours Ago - 1800 Today Timing: Constant Severity Initially: Severe Severity Currently: Severe Pain Intensity: 8 Pain Scale Used: 0-10 Numeric Aggravating Symptom(s): Movement Alleviating Symptom(s): Nothing Associated Signs And Symptoms: Positive: Other - Neck pain, lower back pain, and PERLA - Allergies/Home Medications Allergies/Adverse Reactions: Allergies Allergy/AdvReac Type Severity Reaction Status Date / Time Sulfa (Sulfonamide Allergy Rash Verified 06/05/18 18:39 Antibiotics) PMH/Surg Hx/FS Hx/Imm Hx Endocrine/Hematology History: Denies: Hx Anticoagulant Therapy, Hx Blood Disorders, Hx Diabetes, Hx Thyroid Disease Cardiovascular History: Reports: Hx Angina, Hx Myocardial Infarction, Other Cardiovascular Problems/Disorders - Hx of mild PERLA Denies: Hx Congestive Heart Failure, Hx Coronary Artery Disease, Hx Hypercholesterolemia, Hx Hypertension, Hx Valvular Heart Disease Respiratory History: Denies: Hx Asthma Comment Only: Hx Chronic Obstructive Pulmonary Disease (COPD) - MAYBE GI History: Reports: Other GI Disorders - acid reflux Denies: Hx Ulcer History: Denies: Hx Renal Disease Sensory History: Reports: Hx Contacts or Glasses Denies: Hx Hearing Aid Opthamlomology History: Reports: Hx Contacts or Glasses Psychiatric History: Reports: Hx Anxiety, Hx Depression - Surgical History Surgery Procedure, Year, and Place: C-SECTIONS X3, NECK SURGERY, SHOULDER SURGERY, CHOLECYSTECTOMY Infectious Disease History: No Infectious Disease History: Denies: Hx Clostridium Difficile, Hx Hepatitis, Hx Human Immunodeficiency Virus (HIV), Hx of Known/Suspected MRSA, Hx Shingles, Hx Tuberculosis, Hx Known/ Suspected VRE, Hx Known/Suspected VRSA, History Other Infectious Disease, Traveled Outside the [place] in Last 30 Days - Family History Known Family History: Positive: Cardiac Disease, Other - Cancer...Mom had pancreatic CA and had a PE Family History: Cancer...Mom had pancreatic CA and had a PE - Social History Occupation: Employed Full-time Alcohol Use: Weekly Hx Substance Use: No Substance Use Type: Reports: None Hx Tobacco Use: Yes Smoking Status (MU): Heavy Every Day Tobacco Smoker Type: Cigarettes Amount Used/How Often: 10 cigs Have You Smoked in the Last Year: Yes Review of Systems Constitutional: Negative Eyes: Negative ENT: Negative Cardiovascular: Negative Respiratory: Negative Gastrointestinal: Negative Genitourinary: Negative Musculoskeletal: Other - Neck pain, right elbow pain and lower back pain Positive: Other - Decreased ROM of neck; Negative arm or leg pain. Skin: Negative Negative: Syncope Psychological: Normal All Other Systems Reviewed And Are Negative: Yes Physical Exam - Summary Physical Exam Summary: Appearance: Well-appearing, Well-nourished, lying in bed comfortably Skin: Warm, dry, no obvious rash Eyes: sclera anicteric, no conjunctival pallor ENT: mucous membranes moist, pharynx appears normal Neck: Supple, nontender, Range of motion is fair and patient can not completely turn to the side; No definite midline tenderness Respiratory: Clear to auscultation, no signs of respiratory distress Cardiovascular: Normal S1, S2. No murmurs. Normal distal pulses in tibial and radial bilaterally. Abdomen: Soft, nontender, normal active bowel sounds present Musculoskeletal: Pelvis is stable; Back exam showed no external bruising; extremities are atraumatic; Right elbow exam: Completely able to extend with no deformity or bruising present. No focal latisha tenderness Neurological: A&Ox3, awake and alert, mentation is normal, speech is fluent and appropriate Psychiatric: affect is normal, does not appear anxious or depressed Right elbow is able to completely extend no Deformity or bruising No focal latisha tenderness Triage Information Reviewed: Yes Vital Signs On Initial Exam: Initial Vitals Temp Pulse Resp BP Pulse Ox 98.0 F 76 16 140/71 98 01/31/19 18:48 01/31/19 18:48 01/31/19 18:48 01/31/19 18:48 01/31/19 18:48 Vital Signs Reviewed: Yes Diagnostics - Vital Signs Vital Signs Temp Pulse Resp BP Pulse Ox 01/31/19 18:48 98.0 F 76 16 140/71 98 - Laboratory Lab Statement: Any lab studies that have been ordered have been reviewed, and results considered in the medical decision making process. - Radiology Right Elbow X-ray Radiology Interpretation Completed By: ED Physician Summary of Radiographic Findings: The right elbow X-ray reveals no fracture as per ED Physician. Back X-ray Radiology Interpretation Completed By: ED Physician Summary of Radiographic Findings: Back X-ray reveals as per ED Physician no fracture. - CT CT Cervical Spine CT Interpretation Completed By: Radiologist Summary of CT Findings: CT Cervical Spine as per radiologist reveals 1. No cervical spine traumatic abnormalities. 2. Mild multilevel cervical spondylopathy post C5-C6 discectomy and fusion. The ED Physician has reviewed this radiology report. Back Pain Course/Dx - Course Course Of Treatment: The patient is a 58 year old female who is presenting to the [facility] with a chief complaint of a fall. She stated that she had fallen backward after slipping on a client's spill. She was unknown to the presence of the liquid. She reports of right elbow pain, lower back pain, PERLA and neck pain as well as decreased ROM of the neck. No syncope was reported. CT Cervical spine , Right elbow X-ray and back X-ray all revealed unremarkable findings. Patient' s physical exam did not show significant remarkable findings. The patient will be discharged Home with a dx will be cervical and lumbar strains. - Diagnoses Provider Diagnoses: Cervical strain, Lumbar strain Discharge - Sign-Out/Discharge Documenting (check all that apply): Patient Departure - Discharge Home Patient Received Moderate/Deep Sedation with Procedure: No - Discharge Plan Condition: Good Disposition: HOME Prescriptions: oxyCODONE/Acetamin 5/325 MG* [Percocet 5/325 TAB*] 2 tab PO Q4H PRN #12 tab MDD 6 PRN Reason: Pain Patient Education Materials: Cervical Strain (ED), Low Back Strain (ED) Forms: *Work Release Referrals: Lopez Vail MD [Medical Doctor] - Additional Instructions: Call Dr. Vail's office for a followup in 3 days, he is an occupational health specialist and can help you if getting back to work is a problem. - Billing Disposition and Condition Condition: GOOD Disposition: Home - Attestation Statements Document Initiated by Scribe: Yes Documenting Scribe: Tung Schilling Provider For Whom Phan is Documenting (Include Credential): Dr. Mukund Bonilla Scribe Attestation: ITung, scribed for Dr. Mukund Bonilla on 02/01/19 at 0103. Scribe Documentation Reviewed: Yes Provider Attestation: The documentation as recorded by the Tung pringle accurately reflects the service I personally performed and the decisions made by me, Dr. Mukund Bonilla Status of Scribe Document: Viewed
[2019-01-31] MEDS ORDERED: oxyCODONE/Acetamin 5/325 MG* TAB PO ONE ×2 (20:27→22:12)
[2019-01-31 22:30] VITALS: BP 122/59
== END 2019-01-31 22:29 | disposition home or self-care (01) ==
LOC: ED 18:42
DX: S16.1XXA Strain of muscle, fascia and tendon at neck level, initial encounter (principal); S39.012A Strain of muscle, fascia and tendon of lower back, initial encounter; W01.0XXA Fall on same level from slipping, tripping and stumbling without subsequent striking against object, initial encounter; Y92.9 Unspecified place or not applicable; F17.210 Nicotine dependence, cigarettes, uncomplicated; J44.9 Chronic obstructive pulmonary disease, unspecified; Z88.2 Allergy status to sulfonamides
CPT/HCPCS: 72100; 72125; 99283; A9270-GY

== ENCOUNTER 2019-02-16 17:21 | Emergency (ER) | payer OTHER ==
--- NOTE | 2019-02-16 19:05 | ED ---
Neck Pain - HPI Summary HPI Summary: Patient sent by Dr. Germain for flexion and extension x-ray of cervical spine. History of fall at work on 01/31 with evaluation here in this ED. Complains of persistent neck and lower back pain. Subsequent diagnosis of sacral fracture. Denies any new symptoms or change in symptoms. 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 Onset/Duration Of Injury/Symptoms: Weeks Timing: Constant Onset/Duration: Gradual Onset Severity Initially: Severe Severity Currently: Severe Pain Intensity: 9 Pain Scale Used: 0-10 Numeric Aggravating Factors: Nothing Alleviating Factors: Nothing Associated Signs & Symptoms: Positive: Negative - Allergies/Home Medications Allergies/Adverse Reactions: Allergies Allergy/AdvReac Type Severity Reaction Status Date / Time Sulfa (Sulfonamide Allergy Rash Verified 02/16/19 17:41 Antibiotics) PMH/Surg Hx/FS Hx/Imm Hx Endocrine/Hematology History: Denies: Hx Anticoagulant Therapy, Hx Blood Disorders, Hx Diabetes, Hx Thyroid Disease Cardiovascular History: Reports: Hx Angina, Hx Myocardial Infarction, Other Cardiovascular Problems/Disorders - Hx of mild PERLA Denies: Hx Congestive Heart Failure, Hx Coronary Artery Disease, Hx Hypercholesterolemia, Hx Hypertension, Hx Valvular Heart Disease Respiratory History: Denies: Hx Asthma Comment Only: Hx Chronic Obstructive Pulmonary Disease (COPD) - MAYBE GI History: Reports: Other GI Disorders - acid reflux Denies: Hx Ulcer History: Denies: Hx Renal Disease Sensory History: Reports: Hx Contacts or Glasses Denies: Hx Hearing Aid Opthamlomology History: Reports: Hx Contacts or Glasses Psychiatric History: Reports: Hx Anxiety, Hx Depression - Surgical History Surgery Procedure, Year, and Place: C-SECTIONS X3, NECK SURGERY, SHOULDER SURGERY, CHOLECYSTECTOMY Infectious Disease History: No Infectious Disease History: Denies: Hx Clostridium Difficile, Hx Hepatitis, Hx Human Immunodeficiency Virus (HIV), Hx of Known/Suspected MRSA, Hx Shingles, Hx Tuberculosis, Hx Known/ Suspected VRE, Hx Known/Suspected VRSA, History Other Infectious Disease, Traveled Outside the [place] in Last 30 Days - Family History Known Family History: Positive: Cardiac Disease, Other - Cancer...Mom had pancreatic CA and had a PE Family History: Cancer...Mom had pancreatic CA and had a PE - Social History Alcohol Use: Weekly Hx Substance Use: No Substance Use Type: Reports: None Hx Tobacco Use: Yes Smoking Status (MU): Heavy Every Day Tobacco Smoker Type: Cigarettes Amount Used/How Often: 10 cigs Have You Smoked in the Last Year: Yes Review of Systems Constitutional: Negative Eyes: Negative ENT: Negative Cardiovascular: Negative Respiratory: Negative Gastrointestinal: Negative Genitourinary: Negative Musculoskeletal: Other Skin: Negative Neurological: Negative Psychological: Normal All Other Systems Reviewed And Are Negative: Yes Physical Exam - Summary Physical Exam Summary: No ecchymosis, erythema, deformity, swelling noted to cervical spine. Mild tenderness to palpation. Patient moves head freely well speaking. Patient refuses to allow this provider to examine lower back, stating she will have Dr. Angulo manage all lower back pain. Patient cooperates minimally with history of present illness. States she just wants imaging done, results sent to Dr. Angulo and to go home. Does not want physical exam. After extended conversation, patient allowed physical exam of cervical spine. Triage Information Reviewed: Yes Vital Signs On Initial Exam: Initial Vitals Temp Pulse Resp BP Pulse Ox 98.4 F 87 16 134/78 96 02/16/19 17:30 02/16/19 17:30 02/16/19 17:30 02/16/19 17:30 02/16/19 17:30 Vital Signs Reviewed: Yes Appearance: Positive: Well-Appearing Skin: Positive: Warm Head/Face: Positive: Normal Head/Face Inspection Eyes: Positive: Normal Neck: Positive: Supple Respiratory/Lung Sounds: Positive: Clear to Auscultation Cardiovascular: Positive: Normal Abdomen Description: Positive: Nontender Musculoskeletal: Positive: Normal Neurological: Positive: Normal Psychiatric: Positive: Normal AVPU Assessment: Alert - Magda Coma Scale Best Eye Response: 4 - Spontaneous Best Motor Response: 6 - Obeys Commands Best Verbal Response: 5 - Oriented Coma Scale Total: 15 Diagnostics - Vital Signs Vital Signs Temp Pulse Resp BP Pulse Ox 02/16/19 17:30 98.4 F 87 16 134/78 96 - Laboratory Lab Statement: Any lab studies that have been ordered have been reviewed, and results considered in the medical decision making process. Neck Course/Dx - Course Course Of Treatment: Patient sent by Dr. Germain for flexion and extension x- ray of cervical spine. History of fall at work on 01/31 with evaluation here in this ED. Complains of persistent neck and lower back pain. Subsequent diagnosis of sacral fracture. Denies any new symptoms or change in symptoms. Patient cooperates minimally.. States she just wants imaging done, results sent to Dr. Angulo and to go home. Does not want physical exam. After extended conversation, patient allowed physical exam of cervical spine. Patient refuses to allow this provider to examine lower back, stating she will have Dr. Angulo manage all lower back pain. Physical exam:No ecchymosis, erythema, deformity, swelling noted to cervical spine. Mild tenderness to palpation. Patient moves head freely well speaking. Patient refused CT lumbar sacral. No acute process noted on flexion and extension x-ray of cervical spine. Patient will follow-up with Dr. Angulo. Patient has rx for pain control at home. - Diagnoses Provider Diagnoses: Neck pain Discharge - Sign-Out/Discharge Documenting (check all that apply): Patient Departure Patient Received Moderate/Deep Sedation with Procedure: No - Discharge Plan Condition: Stable Disposition: HOME Patient Education Materials: Neck Pain (ED) Referrals: Session Ronald FATIMA [Primary Care Provider] - Additional Instructions: Follow up with Dr. Angulo for further management of neck pain subsequent to fall. Return to the ED for any new or worsening symptoms. - Billing Disposition and Condition Condition: STABLE Disposition: Home
[2019-02-16 19:14] VITALS: BP 131/77
== END 2019-02-16 19:14 | disposition home or self-care (01) ==
LOC: ED 17:21
DX: M54.2 Cervicalgia (principal); M54.5 Low back pain; F32.9 Major depressive disorder, single episode, unspecified; F41.9 Anxiety disorder, unspecified; I25.2 Old myocardial infarction; I20.9 Angina pectoris, unspecified; J44.9 Chronic obstructive pulmonary disease, unspecified; K21.9 Gastro-esophageal reflux disease without esophagitis; F17.210 Nicotine dependence, cigarettes, uncomplicated
CPT/HCPCS: 72040; 99282

== ENCOUNTER 2019-02-25 02:27 | Emergency (ER) | payer OTHER ==
--- NOTE | 2019-02-25 03:05 | ED ---
Back Pain - HPI Summary HPI Summary: Pt is a 58 y/o F presenting to the ED with a chief complaint of back pain onset weeks ago when she got hurt at work. She slipped and fell onto her back, neck, and head, and later found out she has a fracture in her lower back. Her pain has since increased with pain in her neck/lower back, and she feels numbness and weakness in her legs and arms intermittently. She has had no issues since her past C-spine fusion. 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 Onset/Duration: Sudden Onset, Lasting Weeks, Still Present Onset/Duration: Started Weeks Ago, Still Present Timing: Constant, Lasting Weeks Back Pain Location: Is Diffuse Severity Initially: Moderate Severity Currently: Severe Pain Intensity: 8 Pain Scale Used: 0-10 Numeric Character: Aching Aggravating Symptom(s): Movement Alleviating Symptom(s): Nothing Associated Signs And Symptoms: Positive: Weakness, Numbness, Pain with Weight Bearing - Allergies/Home Medications Allergies/Adverse Reactions: Allergies Allergy/AdvReac Type Severity Reaction Status Date / Time Sulfa (Sulfonamide Allergy Rash Verified 02/25/19 02:30 Antibiotics) PMH/Surg Hx/FS Hx/Imm Hx Previously Healthy: Yes Endocrine/Hematology History: Denies: Hx Anticoagulant Therapy, Hx Blood Disorders, Hx Diabetes, Hx Thyroid Disease Cardiovascular History: Reports: Hx Angina, Hx Myocardial Infarction, Other Cardiovascular Problems/Disorders - Hx of mild PERLA Denies: Hx Congestive Heart Failure, Hx Coronary Artery Disease, Hx Hypercholesterolemia, Hx Hypertension, Hx Valvular Heart Disease Respiratory History: Denies: Hx Asthma Comment Only: Hx Chronic Obstructive Pulmonary Disease (COPD) - MAYBE GI History: Reports: Other GI Disorders - acid reflux Denies: Hx Ulcer History: Denies: Hx Renal Disease Sensory History: Reports: Hx Contacts or Glasses Denies: Hx Hearing Aid Opthamlomology History: Reports: Hx Contacts or Glasses Psychiatric History: Reports: Hx Anxiety, Hx Depression - Surgical History Surgery Procedure, Year, and Place: C-SECTIONS X3, NECK SURGERY, SHOULDER SURGERY, CHOLECYSTECTOMY Infectious Disease History: No Infectious Disease History: Denies: Hx Clostridium Difficile, Hx Hepatitis, Hx Human Immunodeficiency Virus (HIV), Hx of Known/Suspected MRSA, Hx Shingles, Hx Tuberculosis, Hx Known/ Suspected VRE, Hx Known/Suspected VRSA, History Other Infectious Disease, Traveled Outside the [place] in Last 30 Days - Family History Known Family History: Positive: Cardiac Disease, Other - Cancer...Mom had pancreatic CA and had a PE Family History: Cancer...Mom had pancreatic CA and had a PE - Social History Alcohol Use: Weekly Hx Substance Use: No Substance Use Type: Reports: None Hx Tobacco Use: Yes Smoking Status (MU): Heavy Every Day Tobacco Smoker Type: Cigarettes Amount Used/How Often: 10 cigs Have You Smoked in the Last Year: Yes Review of Systems Positive: Myalgia Positive: Weakness, Numbness All Other Systems Reviewed And Are Negative: Yes Physical Exam - Summary Physical Exam Summary: Appearance: Well-appearing, Well-nourished, lying in bed comfortably Skin: Warm, dry, no obvious rash Eyes: sclera anicteric, no conjunctival pallor ENT: mucous membranes moist, pharynx appears normal Neck: Supple, nontender Respiratory: Clear to auscultation, no signs of respiratory distress Cardiovascular: Normal S1, S2. No murmurs. Normal distal pulses in tibial and radial bilaterally. Abdomen: Soft, nontender, normal active bowel sounds present Musculoskeletal: Normal, Strength/ROM Intact Neurological: A&Ox3, awake and alert, mentation is normal, speech is fluent and appropriate. Strength in UE and LE both proximally and distally normal. Deep tendon reflexes of the biceps, triceps, brachioradialis, patella, and Achilles are all 2+, symmetric, and without clonus. There are no gross sensory deficits. Psychiatric: affect is normal, does not appear anxious or depressed Triage Information Reviewed: Yes Vital Signs On Initial Exam: Initial Vitals Temp Pulse Resp BP Pulse Ox 97.5 F 70 20 123/77 98 02/25/19 02:28 02/25/19 02:28 02/25/19 02:28 02/25/19 02:28 02/25/19 02:28 Vital Signs Reviewed: Yes - [place] Coma Scale Best Eye Response: 4 - Spontaneous Best Motor Response: 6 - Obeys Commands Best Verbal Response: 5 - Oriented Coma Scale Total: 15 Diagnostics - Vital Signs Vital Signs Temp Pulse Resp BP Pulse Ox 05/24/19 02:28 97.5 F 70 20 123/77 98 - Laboratory Lab Statement: Any lab studies that have been ordered have been reviewed, and results considered in the medical decision making process. - CT Brain CT CT Interpretation Completed By: Radiologist Summary of CT Findings: No acute intracranial hemorrhage or significant mass effect. ED physician has reviewed this report. Back Pain Course/Dx - Course Course Of Treatment: Pt is a 58 y/o F presenting to the ED with a chief complaint of back pain onset weeks ago when she slipped and fell at work. Her pain has since increased with pain in her neck/lower back, and she feels numbness and weakness in her legs and arms intermittently. I spoke with Dr. King who recommended an MRI of the C-spine, CT of the head, and states that he will be seeing the patient in the morning. Upon physical exam, the pt' s strength in UE and LE is both proximally and distally normal. Deep tendon reflexes of the biceps, triceps, brachioradialis, patella, and Achilles are all 2+, symmetric, and without clonus. There are no gross sensory deficits. Brain CT shows no acute intracranial hemorrhage or significant mass effect. The pt will be signed out to Dr. Morel pending MRI of the C-spine. - Diagnoses Provider Diagnoses: Cervical spine pain, Lumbar spine pain Discharge - Sign-Out/Discharge Documenting (check all that apply): Sign-Out Patient Signing out patient TO: Cynthia Morel Patient Received Moderate/Deep Sedation with Procedure: No - Discharge Plan Condition: Stable Disposition: HOME Prescriptions: Ondansetron ODT TAB* [Zofran 4 MG Odt TAB*] 4 mg PO Q6H PRN #20 tab.odt PRN Reason: Nausea Patient Education Materials: Cervical Strain (ED), Low Back Strain (ED), Paresthesia (ED) Referrals: Session Ronald FATIMA [Primary Care Provider] - Lopez Vail MD [Medical Doctor] - As Soon As Possible Lois Araujo MD [Medical Doctor] - 1 Week Additional Instructions: We have given you a copy of your CT's MRI's and cervical xrays done today. The studies do not show a sacral fracture that they were concerned about previously , and that is a final reading. We do not see significant abnormalities that would need emergency care at this time. We discussed this with Dr. Araujo before writing your discharge. You were given morphine and percocet for pain while in the ER. You were given ondansetron for nausea, and Dr. Morel prescribed some of this for you to use at home for nausea if needed. Please have defnite follow up with Dr. Vail and Dr. Araujo for further evaluation and care of your pain. Return to the ER if any new or worsening symptoms. - Billing Disposition and Condition Condition: STABLE Disposition: Home - Attestation Statements Document Initiated by Phan: Yes Documenting Scribe: Jayleen Villasenor Provider For Whom Phan is Documenting (Include Credential): Mukund Bonilla MD. Scribe Attestation: IJayleen, scrmontanaed for Mukund Bonilla MD. on 03/01/19 at 1840. Scribe Documentation Reviewed: Yes Provider Attestation: The documentation as recorded by the roquee, Jayleen Villasenor accurately reflects the service I personally performed and the decisions made by me, Mukund Bonilla MD. Status of Scribe Document: Viewed Consult Consult: [id number] - I spoke with Dr. King who recommended an MRI of the C-spine, CT of the head, and states that he will be seeing the patient in the morning.
[2019-02-25] MEDS ORDERED: oxyCODONE/Acetamin 5/325 MG* TAB PO ONE (04:37)
--- NOTE | 2019-02-25 07:40 | ED ---
Progress - Progress Note Progress Note: RECEIVING SIGN-OUT FROM DR. BONILLA AT [facility] (07:00) ON 02/25/2019 PENDING C-SPINE MRI. HPI: A 58 y/o F presents to ED c/o back and neck pain, s/p fall on 01/31/2019. At bedside, she complains of numbness to bilat finger tips and feet. She denies CP , abd pain, nausea. Pt is requesting pain medication. Pt is s/p prior anterior cervical fusion. Physical Exam: Appearance: Chronically ill-appearing, moderate pain distress, well-nourished Skin: Warm, color reflects adequate perfusion, dry Head: Normal Head/Face inspection, atraumatic Eyes: Conjunctiva clear ENT: Normal inspection Neck: Supple, no nodes, no JVD. C-spine tenderness posteriorly. Respiratory: Lungs clear, normal breath sounds, no respiratory distress Cardio: RRR, No murmur, pulses normal, brisk capillary refill Abdomen: Soft, nontender Bowel sounds: Present Musculoskeletal: Strength Intact/ROM intact, no calf tenderness, no edema. L- spine tenderness. Sensation intact, despite pt c/o numbness Psychological: Normal Neuro: Alert, muscle tone normal, no focal deficit Consult: 0831: Dr. Araujo, neuro surgery discussed pt care with me. Pt is known to the outpatient neurosurgery clinic. His exam today reveals no neuro deficit. Discussing patient who had partial fx at S4 after fall read by radiologist; However, Dr. Araujo reviewed a CT from 2018 and felt it was identical and that there was not S4 fracture at that time. Recommends repeat C-, L-, S-spine CTs, flex/extension XR of cervical spine. L-Spine MRI (C-spine MRI is already ordered.) 0957: Dr. Castillo, radiology Discussing L-SPINE CT read, no sacral fracture. He will add addendum to his report. 1007: Dr. Araujo, neuro surgery Recommends admission to hospitalist to obtain MRI imaging, as the MRI imaging cannot be initiated until after 4pm due to inpatient MRI's being done. 1009: Dr. Mcgovern, hospitalist Will admit patient. 1023: JOSE CRUZ [facility] surgery Updating him on patient and plans to admit 1410: Dr. Araujo, neuro surgery Will review MRI results and call back. (MRI was able to be done earlier. Pt did not require hospitalist admission). 1419: Dr. Araujo, neuro surgery, reviews all imaging himself. Discusses care with Dr. Morel. Agrees with discharge, to follow up in office. - Results/Orders Results/Orders: L-SPINE CT as read by radiologist: IMPRESSION: 1. NO EVIDENCE FOR FRACTURE. 2. MILD LUMBAR SPONDYLOSIS DESCRIBED. ED provider has reviewed this report. C-SPINE CT as read by radiologist: IMPRESSION: Anterior fusion of C5-C6. No fracture of the cervical spine is noted. Overall no changes noted since January 31, 2019. ED provider has reviewed this report. C-SPINE XR WITH OBL,FLEX,EXT as read by radiologist: REPORT AND IMPRESSION: #. Negative for fracture. #. Solid osseous fusion at the C5-C6 level. Negative for findings of loosening or fracture of the anterior C5-C6 fusion hardware. Limited range of motion on flexion and extension. Negative for spondylolisthesis at any level. Straightening of the cervical spine in neutral position. #. Moderate disc space narrowing at C6-C7 with associated vertebral endplate osteophytosis as on the February 16, 2019 exam. #. Uncinate process spurring and facet joint osteoarthritis results in moderate osseous foraminal stenosis at C6-C7 on the LEFT. #. Unremarkable prevertebral soft tissue contours. ED provider has reviewed this report. L-SPINE MRI as read by radiologist: IMPRESSION: Mild lumbar spondylosis. C-SPINE MRI as read by radiologist: IMPRESSION: 1. STATUS POST ANTERIOR SPINAL FUSION AT THE C5-C6 LEVEL. 2. MILD CERVICAL SPONDYLOSIS DESCRIBED. NO SIGNIFICANT SPINAL CANAL NARROWING IS SEEN. ED provider has reviewed this report. Re-Evaluation - Re-Evaluation 1 Re-Evaluation Time: 10:12 Change: Unchanged Comment: received morphine without relief. Requests more pain medication. Given ibuprofen. 2 Re-Evaluation Time: 13:53 Change: Improved Comment: Discussing imaging results with patient, and Dr. Araujo's diagnoses , and plan of care. Her pain is well controlled, she will get a ride home with son. Will discharge patient home. Course/Dx - Course Course Of Treatment: RECEIVING SIGN-OUT FROM DR. BONILLA AT [facility] (07:00) ON 02/25/2019 PENDING C-SPINE MRI. A 58 y/o F presents to ED c/o back and neck pain, s/p fall on 01/31/2019. At bedside, she complains of numbness to bilat finger tips and feet, but denies CP, abd pain, nausea. Consulted with Dr. Araujo, neuro surgery who recommends repeat C-, L-, S-spine CTs, flex/ extension XR of neck. L-Spine MRI (C-spine is already ordered.) Dr. Araujo' s neuro exam was normal. Spoke with MRI, patient cannot be done until 1600. Spoke with Heraclio in [place] who will include sacral spine in CT L-S spine, due to question of S4 fracture on prior imaging. Consulted with Dr. Mcgovern, hospitalist , who will admit patient for pain control and MRI imaging. Patient was able to complete MRIs at approx noon this date. After discussing results with patient, who feels her pain is in control, and discussing imaging results with Dr. Araujo, both of us feel it is safe to discharge patient home. - Diagnoses Provider Diagnoses: Cervical spine pain, Lumbar spine pain Discharge - Sign-Out/Discharge Documenting (check all that apply): Patient Departure - D/C, Receiving Sign-Out Receiving patient FROM: Mukund Bonilla - pending Cspine MRI Patient Received Moderate/Deep Sedation with Procedure: No - Discharge Plan Condition: Stable Disposition: HOME Prescriptions: Ondansetron ODT TAB* [Zofran 4 MG Odt TAB*] 4 mg PO Q6H PRN #20 tab.odt PRN Reason: Nausea Patient Education Materials: Cervical Strain (ED), Low Back Strain (ED), Paresthesia (ED) Referrals: Session Ronald FATIMA [Primary Care Provider] - Lopez Vail MD [Medical Doctor] - As Soon As Possible Lois Araujo MD [Medical Doctor] - 1 Week Additional Instructions: We have given you a copy of your CT's MRI's and cervical xrays done today. The studies do not show a sacral fracture that they were concerned about previously , and that is a final reading. We do not see significant abnormalities that would need emergency care at this time. We discussed this with Dr. Araujo before writing your discharge. You were given morphine and percocet for pain while in the ER. You were given ondansetron for nausea, and Dr. Morel prescribed some of this for you to use at home for nausea if needed. Please have defnite follow up with Dr. Vail and Dr. Araujo for further evaluation and care of your pain. Return to the ER if any new or worsening symptoms. - Billing Disposition and Condition Condition: STABLE Disposition: Home - Attestation Statements Document Initiated by Phan: Yes Documenting Scribe: Wayne Chiang Provider For Whom Phan is Documenting (Include Credential): Dr. Cynthia Morel MD Scribe Attestation: Wayne Gates, scribed for Dr. Cynthia Morel MD on 02/28/19 at 2211. Scribe Documentation Reviewed: Yes Provider Attestation: The documentation as recorded by the Wayne pringle accurately reflects the service I personally performed and the decisions made by me, Dr. Cynthia Morel MD Status of Scribe Document: Viewed
[2019-02-25] MEDS ORDERED: Morphine 4 MG/ML VIAL (1 ml) 4 MG/ML VIAL IM ONE (08:45)
[2019-02-25] MEDS ORDERED: Ibuprofen TAB* 800 MG PO ONE (11:45)
[2019-02-25] MEDS ORDERED: Ondansetron ODT TAB* 4 MG PO ONE (14:23)
[2019-02-25 14:37] VITALS: BP 109/52
--- NOTE | 2019-02-25 21:57 | CONS ---
CONSULTATION NOTE: DATE OF CONSULT: 02/25/19. HISTORY OF PRESENT ILLNESS: The patient is a very pleasant 58-year-old right- handed female who was followed in the outpatient clinic. 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 At that time, she sustained a back injury. The patient had x- ray of the sacrum that revealed a possible sacral fracture and was scheduled for a CT scan of the lumbar spine. Because of her mild complaints of neck pain , she was scheduled for a flexion and extension x-ray of her cervical spine that did not reveal any evidence of fracture or subluxation while the CT scan of the cervical spine was negative at the time of evaluation. The patient came to the emergency room because of complaints of numbness in her fingertips and in her feet for the last 2 to 3 days as well as some back pain. The patient was seen in the emergency room. The patient reports that she has no neck pain, but she did have some mild back pain. She denies any weakness of her extremities, but reports numbness in the fingertips in both hands, as well in her toes. She denies any tingling. She ambulates at her baseline without significant difficulties. Denies any urinary or GI incontinence. Her perineal sensation is intact. 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 She is a , lives alone, has 3 children. PAST MEDICAL HISTORY: 1. Angina. 2. History of NM. 3. GERD. 4. Anxiety. 5. Depression. PAST SURGICAL HISTORY: 1. Anterior cervical diskectomy and fusion. 2. . 3. Cholecystectomy. MEDICATIONS: Per our office records, the patient was on acetaminophen and cyclobenzaprine. ALLERGIES: SULFA. SOCIAL HISTORY: Tobacco, positive. Alcohol, weekly. Recreational use, negative. FAMILY HISTORY: Cardiac disease, pancreatic cancer, and PE. PHYSICAL EXAM: The patient is not in acute distress. She is sleeping comfortably in her emergency room bed, but is easily arousable. She is awake, alert, and oriented x3. Her pupils are equal and reactive. Cranial nerves II through XII are grossly intact. Motor 5/5 in all extremities. Sensory grossly intact to light touch. Deep tendon reflexes +1 bilaterally. No clonus, no Babinski's. Elissa's is negative. Straight leg raise is negative in the sitting position. The patient has no tenderness to palpation of the cervical, thoracic, or lumbar spine. She has free range of motion of cervical spine. ASSESSMENT: The patient is a very pleasant 58-year-old right-handed female with diagnosis of possible cervical fracture with complaints of numbness in both hands and feet. PLAN: The patient at this point is doing quite well. We recommend full workup to exclude the remote possibility of any other injuries. I would recommend CT scan of cervical spine as well as MRI of the cervical spine and flexion/ extension x-rays. In terms of her lumbar spine, we recommend a lumbar spine CT with inclusion of the sacrum as well as an MRI of the lumbar spine as well as CT scan of the head. The patient had a negative CT scan of the head. WhCT lumbar spine did not reveal evidence of a sacral fracture. While CT scan of the cervical spine revealed postoperative changes without evidence of fracture or subluxation, MRI of the cervical spine revealed mild left C6-7 disk osteophyte complex while the MRI of the lumbar spine revealed mild degenerative disk disease. The patient will be discharged from the emergency room. I will be happy to follow the patient in the office . Thank you for allowing us to participate in the care of this patient. Please do not hesitate to contact our office in case you have any further questions or concerns regarding the care of this patient. [id number]/CPS #: [id number] MTDD
== END 2019-02-25 14:36 | disposition home or self-care (01) ==
LOC: ED 02:27
DX: M54.2 Cervicalgia (principal); M54.5 Low back pain; I25.2 Old myocardial infarction; F41.9 Anxiety disorder, unspecified; F32.9 Major depressive disorder, single episode, unspecified; F17.210 Nicotine dependence, cigarettes, uncomplicated; Z88.2 Allergy status to sulfonamides; M47.9 Spondylosis, unspecified; Z98.1 Arthrodesis status
CPT/HCPCS: 70450; 72052; 72125; 72131; 72141; 72148; 99283; A9270-GY; J2270

== ENCOUNTER 2019-09-30 09:42 | Emergency (ER) | payer SELFPAY ==
--- OUTSIDE RECORDS SUMMARY | 2019-09-30 09:49 | XMS REPORT | Continuity of Care Document ---
:1960 External Reference #:[id number] Author Name Ale Marino M.D. 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 Onset: region and thigh Social History Type Date Description Comments Sex Unknown ETOH Use Denies alcohol use Tobacco Use Start: Unknown Patient is a current smoker, smokes every day Recreational Drug Use Denies Drug Use Smoking Status Reviewed: 08/26/19 Patient is a current smoker, smokes every day Allergies, Adverse Reactions, Alerts Active Allergies Reaction Severity Comments Date Sulfa 02/16/2019 Medications Active Medications SIG Qnty Indications Ordering Provider Date Hydrocodone-Acetaminophen 1 or 2 tabs by Unknown mouth every 6-8 5-325mg Tablets hours as needed for pain Cyclobenzaprine HCL take 1 tab by Unknown 10mg mouth 2-3 times Tablets a day as needed Medications Administered in Office Medication SIG Qnty Indications Ordering Provider Date No Injection Ale Marino M.D. 07/20/2019 Injection Depomedrol 40MG Ale Marino M.D. 07/20/2019 Injection Immunizations Description No Information Available Vital Signs Date Vital Result Comment 08/26/2019 1:06pm Height 66 inches 5'6" Weight 174.00 lb Heart Rate 94 /min BP Systolic 120 mmHg BP Diastolic 68 mmHg Respiratory Rate 20 /min Body Temperature 98.3 F Pain Level 8 O2 % BldC Oximetry 96 % BMI (Body Mass Index) 28.1 kg/m2 07/20/2019 11:25am Height 66 inches 5'6" Weight 174.00 lb Heart Rate 71 /min BP Systolic 121 mmHg BP Diastolic 84 mmHg Body Temperature 97.9 F Pain Level 8 BMI (Body Mass Index) 28.1 kg/m2 Results Test Acquired Date Facility Test Result H/L Range Note Xray 07/20/2019 [facility] In House Inj/Aspir Major JT Or Bursa <pending> W/ US Procedures Date Code Description Status 07/20/2019 Inj/Aspir Major JT Or Bursa W/ US Completed 07/20/2019 Inj/Aspir Major JT Or Bursa W/ US Completed Medical Devices Description No Information Available Encounters Type Date Location Provider Dx Diagnosis Office Visit 08/26/2019 [facility] Ale Marino M16.12 Unilateral primary 1:00p at [facility] osteoarthritis, left hip M25.552 Pain in left hip Office Visit 07/20/2019 [facility] M16.12 Unilateral primary 11:00a [facility] osteoarthritis, left [place] hip M25.552 Pain in left hip M16.12 Unilateral primary osteoarthritis, left hip M54.5 Low back pain Office 03/02/2019 [facility] M54.16 Radiculopathy, Visit 4:00p [facility] Arau[facility] MD lumbar region Office 02/25/2019 [facility] R20.0 Anesthesia of skin Visit 7:00a [facility] Arau[facility] MD M54.2 Cervicalgia M54.5 Low back pain W19.xxxA Unspecified fall, initial encounter Assessments Date Code Description Provider 08/26/2019 M16.12 Unilateral primary osteoarthritis, left Ale Marino M.D. hip 08/26/2019 M25.552 Pain in left hip Ale Marino M.D. 07/20/2019 M16.12 Unilateral primary osteoarthritis, left Ale Marino M.D. hip 07/20/2019 M25.552 Pain in left hip Ale Marino M.D. 07/20/2019 M16.12 Unilateral primary osteoarthritis, left Ale Marino M.D. hip 07/20/2019 M54.5 Low back pain Ale Marino M.D. 06/15/2019 M54.5 Low back pain Lois Araujo MD 06/15/2019 M51.36 Other intervertebral disc degeneration, Lois Araujo MD lumbar region 03/02/2019 M54.16 Radiculopathy, lumbar region Lois Araujo MD 02/25/2019 R20.0 Anesthesia of skin Lois Araujo MD 02/25/2019 M54.2 Cervicalgia Lois Araujo MD 02/25/2019 M54.5 Low back pain Lois Araujo MD 02/25/2019 W19.xxxA Unspecified fall, initial encounter Lois Araujo MD Plan of Treatment Future Appointment(s):09/14/2019 10:00 am - Lois Araujo MD at [facility]08/26/2019 - Ale Marino M.D.M16.12 Unilateral primary osteoarthritis, left hipFollow up:Follow up: after testing is completed - left hip mriM25.552 Pain in left hipNew Xrays:MRI Hip Left W/O, Ordered: 08/26/19 Functional Status Description No Information Available Mental Status Description No Information Available Referrals Refer to Reason for Referral Status Appt Date Ale Marino MD Created [address] [facility] [place] [address] [phone] Kourtney Chilel MD consideration for SI joint injections, Sent 04/04/2019 [address] [place] [address] [phone] Kourtney Chilel MD 58 y/o female with left side axial low back pain Created with left LE pain that localizes in the buttock. She has 4 positive provocative SI Joint test, patient request consultation for injections. [address] [place] [address] [phone]
[2019-09-30 09:50] VITALS: BP 132/70
--- NOTE | 2019-09-30 10:02 | UC ---
Throat Pain/Nasal [place]ner HPI - HPI Summary HPI Summary: 58 yo female presents with sinus symptoms. She tells me that over the last week has had sinus pain/pressure/congestion, post nasal drip, and a cough worse at bedtime. She has been taking OTC sinus medication and cough medicine with little relief. She is also out of her albuterol inhaler and is requesting a refill for this today. Denies fever, chills, rash, SOB, abdominal pain, n/v. She is still smoking daily - History of Current Complaint Chief Complaint: UCRespiratory Stated Complaint: SINUS CONGESTION Time Seen by Provider: 09/30/19 10:02 Hx Obtained From: Patient Hx Last Menstrual Period: vp ancillary Onset/Duration: Gradual Onset Severity: Moderate Pain Intensity: 6 Pain Scale Used: 0-10 Numeric - Allergies/Home Medications Allergies/Adverse Reactions: Allergies Allergy/AdvReac Type Severity Reaction Status Date / Time Sulfa (Sulfonamide Allergy Rash Verified 09/30/19 09:50 Antibiotics) PMH/Surg Hx/FS Hx/Imm Hx Respiratory History: COPD Other History Of: Negative For: Anticoagulant Therapy - Surgical History Surgical History: Yes Surgery Procedure, Year, and Place: C-SECTIONS X3, NECK SURGERY, SHOULDER SURGERY, CHOLECYSTECTOMY - Family History Known Family History: Positive: Cardiac Disease, Other - Cancer...Mom had pancreatic CA and had a PE Family History: Cancer...Mom had pancreatic CA and had a PE - Social History Lives: With Family Alcohol Use: None Alcohol Amount: 1 drink/week Substance Use Type: None Smoking Status (MU): Heavy Every Day Tobacco Smoker Type: Cigarettes Amount Used/How Often: 10 cigs Have You Smoked in the Last Year: Yes Household Exposure Type: Cigarettes - Immunization History Most Recent Influenza Vaccination: doesn't get Review of Systems All Other Systems Reviewed And Are Negative: No Constitutional: Positive: Negative Skin: Positive: Negative Eyes: Positive: Negative ENT: Positive: Nasal Discharge, Sinus Congestion, Sinus Pain/Tenderness Respiratory: Positive: Cough Cardiovascular: Positive: Negative Gastrointestinal: Positive: Negative Neurological: Positive: Negative Psychological: Positive: Negative Physical Exam - Summary Physical Exam Summary: GENERAL: NAD. WDWN. No pain distress. SKIN: No rashes, sores, lesions, or open wounds. HEENT: Head: AT/NC Eyes: EOM intact. Conjunctiva clear without inflammation or discharge. Ears: Hearing grossly normal. TMs intact, no bulging, erythema, or edema. Nose: Nasal mucosa mildly swollen and erythematous with yellow/ clear discharge. TTP maxillary and frontal sinus. Positive post nasal drip Throat: Posterior oropharynx without exudates, erythema, or tonsillar enlargement. Uvula midline. NECK: Supple. Nontender. No lymphadenopathy. CHEST: CTAB. No r/r/w. No accessory muscle use. Breathing comfortably and in no distress. CV: RRR. Pulses intact. NEURO: Alert. PSYCH: Age appropriate behavior. Triage Information Reviewed: Yes Vital Signs: Initial Vital Signs Temp 98 F 09/30/19 09:47 Pulse 85 09/30/19 09:47 Resp 16 09/30/19 09:47 BP 132/70 09/30/19 09:47 Pulse Ox 100 09/30/19 09:47 Vital Signs Reviewed: Yes Throat Pain/Nasal Course/Dx - Course Course Of Treatment: Sinusitis - Differential Dx/Diagnosis Provider Diagnosis: Sinusitis Discharge ED - Sign-Out/Discharge Documenting (check all that apply): Patient Departure All imaging exams completed and their final reports reviewed: No Studies - Discharge Plan Condition: Stable Disposition: HOME Prescriptions: Albuterol HFA INHALER* [Ventolin HFA Inhaler*] 1 puff INH Q6H PRN #1 mdi PRN Reason: Sob/Wheezing Azithromycin TAB* [Zithromax TAB (Z-EMILY) 250 mg #6 tabs] 2 tab PO .TODAY, THEN 1 DAILY #1 emily Codeine Phosphate/Guaifenesin [Guaifen-Codeine 100-10 mg/5 ml] 5 ml PO BEDTIME PRN #35 ml MDD 5ml PRN Reason: Cough Patient Education Materials: Sinusitis (ED) Referrals: Session Ronald FATIMA [Primary Care Provider] - Additional Instructions: If you develop a fever, shortness of breath, chest pain, new or worsening symptoms - please call your PCP or go to the ED immediately. - Billing Disposition and Condition Condition: STABLE Disposition: Home
== END 2019-09-30 10:35 | disposition home or self-care (01) ==
LOC: UCEAST 09:42
DX: J32.9 Chronic sinusitis, unspecified (principal); J44.9 Chronic obstructive pulmonary disease, unspecified; F17.210 Nicotine dependence, cigarettes, uncomplicated; Z88.2 Allergy status to sulfonamides
CPT/HCPCS: 99212; G0463

== ENCOUNTER 2020-05-09 07:30 | Inpatient (IN) ==
[2020-05-16] MEDS ORDERED: Famotidine IV 10 MG/ML 2 ml VIAL (20 mg) IV ONE (06:00)
[2020-05-16] MEDS ORDERED: Lactated Ringers 1000 ml BAG 1,000 ML IV SCH (06:00)
[2020-05-16] MEDS ORDERED: Dexamethasone IV 4 MG/ML VIAL 1 ml VIAL IV SLOW PU ONE (06:00)
[2020-05-16] MEDS ORDERED: Buffered Lidocaine 1% SYRIN 1 ml INTRADERM ONE ×2 (06:00→06:50)
[2020-05-16] MEDS ORDERED: Rocuronium 50 mg VIAL 10 mg/ml 5 ml VIAL (50 mg) ONE (06:44)
[2020-05-16] MEDS ORDERED: Dexamethasone IV 4 MG/ML VIAL 1 ml VIAL ONE ×2 (06:44→06:49)
[2020-05-16] MEDS ORDERED: Propofol 10 MG/ML 20 ML BTL ONE (06:44)
[2020-05-16] MEDS ORDERED: Midazolam 2 mg/2 ml VIAL 1 mg/ml 2 ml VIAL (2 mg) ONE (06:45)
[2020-05-16] MEDS ORDERED: fentaNYL 250 mcg/5 ml 50 MCG/ML 5 ml VIAL (250 MCG) ONE (06:45)
[2020-05-16] MEDS ORDERED: ceFAZolin 2 GM PREMIX 2 GM/50 ML BAG ONE (06:50)
[2020-05-16] MEDS ORDERED: Famotidine IV 10 MG/ML 2 ml VIAL (20 mg) ONE (06:50)
[2020-05-16] MEDS ORDERED: Propofol 10 mg/ml 100 ML BTL 0 ML ONE (06:55)
[2020-05-16] MEDS ORDERED: Remifentanil 2 MG VIAL ONE ×2 (06:56→06:57)
[2020-05-16] MEDS ORDERED: Artificial Tear OPHTH.OINT 3.5 GM ONE (07:07)
[2020-05-16] MEDS ORDERED: Bacitracin INJECTION 50,000 UNITS ONE (07:07)
[2020-05-16] MEDS ORDERED: Naloxone 0.4 mg VIAL 0.4 mg/ml 1 ml VIAL IV PRN (07:52)
[2020-05-16] MEDS ORDERED: Levalbuterol 0.63MG/3ML NEB UNIT OF USE INH PRN (07:52)
[2020-05-16] MEDS ORDERED: HYDROcodone/ACETAMIN 5/325 mg TAB PO PRN ×2 (07:52→11:57)
[2020-05-16] MEDS ORDERED: oxyCODONE/Acetamin 5/325 mg TAB PO PRN (07:52)
[2020-05-16] MEDS ORDERED: Prochlorperazine 5 mg/ml 2 ml VIAL (10 mg) IV PRN (07:52)
[2020-05-16] MEDS ORDERED: Ketamine HCL 50 mg/ml 10 ml VIAL (500 MG) ONE (08:11)
[2020-05-16] MEDS ORDERED: Phenylephrine IV 10 MG/ML 1 ml VIAL ONE (09:00)
[2020-05-16] MEDS ORDERED: EPHEDrine (Pressors) 50 MG/ML VIAL ONE (09:29)
[2020-05-16] MEDS ORDERED: Ondansetron 4 mg VIAL 2 MG/ML 2 ml VIAL ONE (09:29)
[2020-05-16] MEDS ORDERED: Succinylcholine 200 mg VIAL 20 mg/ml 10 ml VIAL (200 mg) ONE (09:29)
[2020-05-16] MEDS ORDERED: Lidocaine 2% PF 5 ML VIAL ONE (10:36)
[2020-05-16] MEDS ORDERED: Acetaminophen IV 1 GM/100ML 100 ML ONE (10:43)
[2020-05-16] MEDS ORDERED: fentaNYL 100 mcg/2 ml 50 MCG/ML VIAL ONE ×2 (11:24→12:28)
[2020-05-16] MEDS ORDERED: Magnesium Hydroxide LIQ 30 ML UDC PO PRN (11:57)
[2020-05-16] MEDS ORDERED: Ondansetron 4 mg VIAL 2 MG/ML 2 ml VIAL IV PRN (11:57)
[2020-05-16] MEDS: fentaNYL 100 mcg/2 ml 50 MCG/ML VIAL IV PRN ×2 (12:29→12:36)
[2020-05-16] MEDS ORDERED: Albuterol HFA INHALER 8 gm MDI INH PRN (13:52)
[2020-05-16] MEDS: HYDROcodone/ACETAMIN 5/325 mg TAB PO PRN ×2 (14:30→21:17)
[2020-05-16] MEDS: CMCS:Simvastatin 20 mg TAB (NF) PO SCH (17:50)
[2020-05-16] MEDS: Mometasone/Formoter 200/5 MDI INH SCH (19:27)
[2020-05-17] MEDS: HYDROcodone/ACETAMIN 5/325 mg TAB PO PRN ×4 (03:42→17:29)
[2020-05-17] MEDS: Mometasone/Formoter 200/5 MDI INH SCH (08:25)
[2020-05-17 16:18] VITALS: BP 120/58
[2020-05-17] MEDS: CMCS:Simvastatin 20 mg TAB (NF) PO SCH (17:30)
== END 2020-05-17 18:01 | disposition home or self-care (01) | DRG 304 ==
LOC: AA 05-16 05:50 → SSU 05-16 13:50
PROVIDERS: ADMIT Neurological Surgery; ATTEND Internal Medicine

== ENCOUNTER 2021-02-07 09:01 | Inpatient (IN) ==
[~2021-02-07 09:01] MED LIST changes: -Aspirin TAB* 325 MG PO ONE; +Buffered Lidocaine 1% SYRIN 1 ml INTRADERM ONE; +Dexamethasone IV 4 MG/ML VIAL 1 ml VIAL IV SLOW PU ONE; +Famotidine IV 10 MG/ML 2 ml VIAL (20 mg) IV ONE; +Lactated Ringers 1000 ml BAG 1,000 ML IV SCH
[2021-02-07] MEDS ORDERED: Midazolam 2 mg/2 ml VIAL 1 mg/ml 2 ml VIAL (2 mg) ONE (09:23)
[2021-02-07] MEDS ORDERED: Dexamethasone IV 4 MG/ML VIAL 1 ml VIAL ONE (09:25)
[2021-02-07] MEDS ORDERED: ceFAZolin 2 GM PREMIX 2 GM/50 ML BAG ONE (09:25)
[2021-02-07] MEDS ORDERED: Famotidine IV 10 MG/ML 2 ml VIAL (20 mg) ONE (09:25)
[2021-02-07] MEDS ORDERED: Ondansetron 4 mg VIAL 2 MG/ML 2 ml VIAL ONE (09:26)
[2021-02-07] MEDS ORDERED: Glycopyrrolate IV 0.2 MG/ML 1 ML VIAL ONE (09:26)
[2021-02-07] MEDS ORDERED: Propofol 10 MG/ML 20 ML BTL ONE (09:26)
[2021-02-07] MEDS ORDERED: Ropivacaine 5 MG/ML 20 ML VIAL 0.5% (100 MG) ONE (10:51)
[2021-02-07] MEDS ORDERED: HYDROmorphone 1 MG/1 ML SYRINGE IV PRN (11:08)
[2021-02-07] MEDS ORDERED: Naloxone 0.4 mg VIAL 0.4 mg/ml 1 ml VIAL IV PRN (11:08)
[2021-02-07] MEDS ORDERED: HYDROcodone/ACETAMIN 5/325 mg TAB PO PRN (11:08)
[2021-02-07] MEDS ORDERED: Prochlorperazine 5 mg/ml 2 ml VIAL (10 mg) IV PRN (11:08)
[2021-02-07] MEDS ORDERED: HYDROmorphone 1 MG/1 ML SYRINGE ONE ×2 (11:11→15:11)
[2021-02-07] MEDS ORDERED: Rocuronium 50 mg VIAL 10 mg/ml 5 ml VIAL (50 mg) ONE ×2 (11:13→12:23)
[2021-02-07] MEDS ORDERED: Phenylephrine IV 10 MG/ML 1 ml VIAL ONE (12:13)
[2021-02-07] MEDS ORDERED: Ondansetron ODT 4 mg TAB 4 MG TAB PO PRN (13:08)
[2021-02-07] MEDS ORDERED: Morphine 2 MG/ML SYRINGE IV PRN (13:08)
[2021-02-07] MEDS ORDERED: diPHENhydraMINE 25 mg TAB PO PRN (13:08)
[2021-02-07] MEDS ORDERED: Lactulose 30 ml UDC PO PRN (13:08)
[2021-02-07] MEDS ORDERED: diPHENhydraMINE IV 50 MG/ML 1 ml VIAL (BENADRYL) IV PRN (13:08)
[2021-02-07] MEDS ORDERED: Magnesium Hydroxide LIQ 30 ML UDC PO PRN (13:08)
[2021-02-07] MEDS ORDERED: fentaNYL 100 mcg/2 ml 50 MCG/ML VIAL ONE ×2 (14:23→14:56)
[2021-02-07] MEDS: fentaNYL 100 mcg/2 ml 50 MCG/ML VIAL IV PRN ×4 (14:25→15:03)
[2021-02-07] MEDS ORDERED: Levalbuterol 0.63MG/3ML NEB UNIT OF USE INH ONE ×2 (14:55→15:00)
[2021-02-07] MEDS ORDERED: oxyCODONE/Acetamin 5/325 mg TAB ONE (14:56)
[2021-02-07] MEDS ORDERED: HYDROcodone/ACETAMIN 5/325 mg TAB ONE (14:57)
[2021-02-07] MEDS: Lactated Ringers 1000 ml BAG 1,000 ML IV SCH (16:06)
[2021-02-07] MEDS: Ondansetron 4 mg VIAL 2 MG/ML 2 ml VIAL IV PRN ×2 (17:20→22:37)
[2021-02-07] MEDS: Magnesium Hydroxide LIQ 30 ML UDC PO SCH (20:00)
[2021-02-07] MEDS: ceFAZolin 1 GM ADVAN 1 GM in NS 0.9% 50 ML 50 ML IVPB SCH (20:00)
[2021-02-07] MEDS ORDERED: Mometasone/Formoter 200/5 MDI INH SCH (21:00)
[2021-02-08] MEDS: Lactated Ringers 1000 ml BAG 1,000 ML IV SCH (02:20)
[2021-02-08] MEDS: ceFAZolin 1 GM ADVAN 1 GM in NS 0.9% 50 ML 50 ML IVPB SCH ×2 (05:24→12:16)
[2021-02-08 06:51] LABS: Hematocrit 29 % (35-47); Mean Platelet Volume 8.8 fL (7.4-10.4); Platelet Count 115 10^3/uL (150-450)
[2021-02-08 07:05] LABS: Calcium 8.2 mg/dL (8.6-10.3); EGFR African American 100.9 (>60); EGFR Non-African American 83.4 (>60)
[2021-02-08] MEDS ORDERED: Nicotine PATCH 21 MG/24 HR PATCH TRANSDERM SCH (09:00)
[2021-02-08] MEDS ORDERED: SPIRIVA Respimat (tiotropium) 2.5 mcg/inh Inhaler INH SCH (09:00)
[2021-02-08] MEDS ORDERED: Vitamin THERAPEUTIC TAB PO SCH (09:00)
[2021-02-08] MEDS: Ondansetron 4 mg VIAL 2 MG/ML 2 ml VIAL IV PRN (09:47)
[2021-02-08] MEDS: Magnesium Hydroxide LIQ 30 ML UDC PO SCH (09:51)
[2021-02-08 11:47] VITALS: BP 104/38
== END 2021-02-08 15:45 | disposition home or self-care (01) ==
LOC: AA 09:01 → SSU 15:57
PROVIDERS: ADMIT Orthopaedic Surgery Adult Reconstructive Orthopaedic Surgery; ATTEND Orthopaedic Surgery Adult Reconstructive Orthopaedic Surgery